=== PATIENT | male | born 1970 | race Caucasian/White ===

== ENCOUNTER 2020-05-06 17:53 | Inpatient (IN) | payer BC, SELFPAY ==
[2020-05-06 17:54] VITALS: BP 141/105; PULSE 107; RESP 18; TEMP 36.4; O2SAT 98; BMI 32.5
--- NOTE | 2020-05-06 18:09 | CT_ITS ---
We are attempting to reach an attending provider to discuss findings. An addendum with communication details will be sent when the communication is complete. HISTORY: ABD PAIN/BLOATING. UNINTENTIONAL WEIGHT LOSS. OCCASIONAL VOMITING. DAILY DRINKER 5-7 BEERS/DAY, 12 ON DAYS OFF. TECHNIQUE: Helically acquired images were obtained of the abdomen and pelvis following the intravenous administration of 100 ML of Isovue-370 Iodinated contrast. 2D reformats. Oral contrast was administered. A radiation dose optimization technique was used for this scan. COMPARISON: None FINDINGS: # of images incl. paperwork: 427 LUNG BASES: Clear. CT abdomen: Bones are unremarkable. The gallbladder remains. Liver, spleen, pancreas, and adrenal glands, are normal. The kidneys are normal. The aorta is normal. CT pelvis: Right paracolic gutter ascites is present. The appendix may have ruptured. No abscess is perceived. The appendix is distended to 16 mm. No free air is perceived.. The prostate gland is not enlarged. The bladder is somewhat decompressed. Bowel-gas pattern is normal. CT/Abdomen/Pelvis WITH Contrast IMPRESSION: Acute appendicitis, likely ruptured with out abscess Individualized dose optimization techniques were used for this CT. at 2011 Reported and signed by: Michael Adkins MD Electronically Signed: Michael Adkins MD at 20:10 EDT Tel , Service support ,
[2020-05-06 18:26] LABS: Absolute Lymphocyte Count 1.51 X10^3/uL (0.83-4.51); Absolute Neutrophil Count 3.6 X10^3/uL (2.0-7.7); Basophil# 0.03 X10^3/uL; Basophil% 0.5 % (0-1); Eosinophil# 0.02 X10^3/uL; Eosinophils% 0.3 % (0-5); Hemoglobin 12.7 g/dL (13.0-16.5); Lymphocyte # 1.51 X10^3/ul (4.0); Lymphocyte % 24.1 % (19-41); Mean Corp Hgb Conc 33.4 g/dL (32-36); Mean Corpuscular Hgb 32.6 pg (27.0-32.0); Mean Corpuscular Volume 97.4 fL (80-94); Mean Platelet Vol. 8.7 fl (6.2-12.0); Monocyte# 0.99 X10^3/uL; Monocyte% 15.8 % (0-10); NRBC Flagged by Analyzer 0 % (0-5); Neutrophil % 57.5 % (47-70); Platelet Count 174 K/mm3 (150-450); RBC Distribution Width CV 11.4 % (11.6-14.6); RBC Distribution Width SD 40.3 fl (35.1-43.9); White Blood Count 6.3 K/mm3 (4.4-11.0)
[2020-05-06] MEDS: 0.9% Normal Saline 1,000 ML 125 ML IV (18:29)
[2020-05-06 18:43] LABS: ALB/GLOB Ratio 0.7 RATIO (0.9-2.4); AST(SGOT) 15 U/L (15-37); Alanine Aminotransfer ALT/SGPT 18 U/L (16-61); Albumin, Serum 3.4 g/dL (3.2-5.0); Alkaline Phosphatase 55 U/L (45-117); Anion Gap 7 (5-15); BUN 12 mg/dL (7-18); BUN/Creat Ratio 11.3 RATIO (10-20); Calcium,Total 9.4 mg/dL (8.5-10.1); Chloride 101 mmol/L (98-107); Creatinine, Serum 1.06 mg/dL (0.70-1.30); EST Glomerular Filtration Rate 79 mL/min (>60); Est Glom Filt Rate - Afr Amer 95 mL/min (>60); Estimated Creatinine Clearance 83.37 ml/min; Globulin 5.1 g/dL (2.2-4.2); Glucose 116 mg/dL (74-106); Lipase 124 U/L (73-393); Potassium 3.9 mmol/L (3.5-5.1); Protein, Total 8.5 g/dL (6.4-8.2); Sodium Level 139 mmol/L (136-145)
--- NOTE | 2020-05-06 19:01 | ED.VISSUMM ---
- ER Visit Summary Date of Service: 05/06/20 Chief Complaint: [Abdominal pain] History of Present Illness: The patient is a 50 M [presents the emergency department with complaint of abdominal pain is been going on for at least 3 weeks. Patient complains of nausea and vomiting just off and on. Patient states that he is lost about 13 pounds in the last 2 months. Patient denies any blood in his stool or black tarry stool. He denies any diarrhea. Patient states that he often feels bloated in the lower abdomen and is uncomfortable laying certain ways at times. Patient also states that his urine appeared orange this morning. Patient does drink alcohol and states that he normally drinks 7-8 beers per night and at times will drink 12 beers per day. Patient has history of BPH. Patient has history of gout.] Physical Examination: [HEENT-PERRLA, EOMI. Cranial nerves II through XII grossly intact. TMs clear. Mucous membranes moist. No adenopathy. Cardiovascular-regular rate and rhythm without murmur or ectopy Lungs-clear to auscultation, chest wall stable without crepitus or subcu emphysema Abdomen-normoactive bowel sounds, soft. Patient has tenderness to palpation over right lower quadrant with some guarding. No rebound, rigidity, or cranial signs noted. exam-circumcised male. No hernias noted. Testicles nontender. Normal lie of testicles with normal cremasteric reflex. Extremities-intact ?4, normal range of motion, normal pulses, atraumatic] Test Results: [CBC with differential obtained showed a white count 6.3, hemoglobin 12.7, hematocrit 38, platelets 174. Chemistries were unremarkable. LFTs were normal. Lipase was 124. CT scan of the abdomen pelvis was read by radiology as acute appendicitis likely ruptured without abscess.] Emergency Department Course and Treatment: [IV line established on arrival. Patient was started on Zosyn 4.5 g IV. Case was discussed with general surgeon on-call Dr. Kiet Mercado who evaluated patient in the emergency department and will admit the patient. It is unclear at this time with pain for 3 weeks if this is an acute appendicitis versus a perforated appendicitis versus mass given patient's weight loss and ongoing pain for over 3 weeks.] Treatment Plan: [Admit] Disposition: [Admit] Impression: [Abdominal pain Acute appendicitis] This note was generated with Dragon dictation software. It may contain incorrect words, spelling, and punctuation that were not noted in review of the chart prior to signing ED Disposition - Plan for ED Patient: Referrals: Care Physician,No Primary [Primary Care Provider] -
[2020-05-06 20:26] VITALS: BP 152/111; PULSE 89; RESP 18; O2SAT 98
[2020-05-06 20:27] LABS: Bacteria 0 SEEN /hpf (None Seen); Mucous, Urine 0 SEEN /hpf (<or=2+); Red Blood Cells-Urine 0 SEEN /hpf (0-5); Squamous Epithelial Cells - UA 0 SEEN /hpf (0-5); White Blood Cells 0 SEEN /hpf (0-5)
[2020-05-06 20:28] LABS: Color, Urine Yellow (Yellow); Glucose, Dipstick Normal (Normal); Ketone-Dipstick Negative (Negative); Leukocyte Esterase-Dipstick Negative /ul (Negative); Nitrite-Dipstick Negative (Negative); Occult Blood-Urine Negative /ul (Negative); Protein-Dipstick 15 mg/dl (Negative); Specific Gravity, Urine 1.015 (1.002-1.030); Urine Bilirubin Dipstick Negative (Negative); Urine Clarity Clear (Clear); Urine Urobilinogen 4 mg/dl (Normal)
--- NOTE | 2020-05-06 21:20 | CON.PCM_ITS ---
Reason for Consult Date of Consultation: 05/06/20 Reason for Consultation: Medical consultation, management History of Present Illness: Admission Diagnoses: 1. Acute appendicitis, ruptured versus possible mass 2. Elevated BP without hypertensive diagnosis 3. EtOH Abuse with History of Withdrawal 4. Chronic Heavy Chew Tobacco Abuse 5. BPH The patient is a 50 y/o M w/ PMHx: Chew Tobacco (heavy), Obesity, BPH, EtOH Abuse (3 tall boys daily followed by 7-12 ounce beers, more on the weekends) who presents to the [facility] ED on 05/06/20 with history of approximately 2 to 3 weeks of ongoing abdominal discomfort with intermittent nausea and emesis, initially starting as a cramping dull sensation in the periumbilical region with eventual transition to the right lower quadrant, worse with movement and with activity more recently with a sensation of bloating with difficulty getting comfortable and leading to poor oral intake with concentrated urine prompting eventual ED presentation. Patient during this time has continued to drink his normal amount of alcohol despite feeling poorly. Patient currently rating pain 4-5 out of 10 in severity, more dull but sharp with palpation of the region. Denies any recent fevers or chills associated. Patient does state that over the last several months he has lost approximately 10 to 15 pounds but states he believes this is secondary to decreased oral intake as he is very active during this season. Work-up in the ED included T 97.5, heart rate initially 107 with repeat 89, BP 141/105, respiratory rate 18, 98% on room air, CBC with WC 6.3, hemoglobin 12.7, platelet 174 without significant left shift but increased immature granulocytes, CMP with glucose 116 otherwise not marked appearing, lipase 124, urinalysis not marked appearing, CT abdomen and pelvis with contrast with evidence of acute appendicitis suspected ruptured without abscess. In the ED patient administered Zosyn therapy. ED physician discussed case and patient was admitted by Dr. Mercado, general surgery. General surgery requested medical consultation for alcohol abuse history. Patient does admit that when he is without alcohol intake for less than 24 hours he has onset significant tremors but denies any history previously of seizure activity. Past Medical History Allergies No Known Allergies Allergy (Verified 05/06/20 17:57) Home Medications: Ambulatory Orders Medication Instructions Recorded NK 05/06/20 Surgical History: no surgical history Psychiatric History: No pertinent psych hx Lives: Spouse/ Significant Other Smoking Status: Never smoker Tobacco Use: Chew - Patient with heavy chew tobacco usage of at least 1 can jazmine y, always in when he is not eating even during sleep. Alcohol: Heavy - Patient notes at least 3 tall boys daily followed by 7, 12 ounce beers and more on the weekends. Drugs: None - *Family History Maternal History Items: High Cholesterol, Heart Disease, Hypertension Paternal History Items: High Cholesterol, Heart Disease, Hypertension Review of Systems Constitutional: Reports: Anorexia, Malaise, Weakness, Weight Change, Fatigue. Denies: Chills, Fever HEENT: Denies: Head Aches, Sinus Congestion, Sinus Drainage Cardiovascular: Denies: Chest Pain, Palpitations Respiratory: Denies: Cough, Shortness of breath at rest, Sputum production Gastrointestinal: Reports: Abdominal Pain, Nausea, Vomiting. Denies: Constipation, Diarrhea Genitourinary: Reports: - - Concentrated urine.. Denies: Dysuria Musculoskeletal: Reports: Back Pain, Joint Pain. Denies: Joint Tenderness Skin: Denies: Rash, Wounds Neurological: Reports: Tremor. Denies: Focal weakness, Numbness, Tingling Psychiatric: Denies: Anxiety, Depression, Homicidal Ideations, Suicidal Ideations Hematologic/ Lymphatic: Denies: Easy Bruising, Easy Bleeding Patient Problems: Active and Suspected Problems Abdominal pain (Acute) Subjective: Patient laying in the ED bed, mildly fatigued appearance, uncomfortable with palpation to the abdomen. Objective: Physical Examination: General: awake, alert, oriented x 3 and cooperative, seated upright in the ED bed, mildly fatigued appearance, notes discomfort primarily palpation. Skin: normal color, turgor, no icterus, cyanosis. HEENT: AT/NC, EOMI, PERRLA, scleral injection bilaterally, dry MM, no carotid bruits or JVD noted. Lungs: CTA bilaterally, moderate effort, mild decrease BL bases, no rales, ronchi or wheezing. Heart: Mildly tachycardic with regular rhythm; no gallop, rub audible. Abdomen: soft, discomfort with palpation of primarily right lower quadrant with rebound noted, notes sensation of distention but no obvious distention, distant normal bowel sounds, difficult to assess HSM given discomfort with palpation. Extremities: no cyanosis, clubbing, or edema. Neurological: patient awake, alert, oriented x 3; cognitive function intact; pupils equally reactive to light and accomodation; cranial nerves II-XII grossly normal, moving all 4 extremities, no focal deficits, strength moderately global decrease secondary to acute complaints. Psychiatric: affect appears fatigued and mildly uncomfortable following evaluation otherwise normal, no acute evidence of depressive or anxiety feelings. - Physical Exam Vitals/I&O's: Vital Signs Temp Pulse Resp BP Pulse Ox 97.5 F L 89 18 152/111 H 98 05/06/20 17:54 05/06/20 20:26 05/06/20 20:26 05/06/20 20:26 05/06/20 20:26 Oxygen Delivery Method Room Air Weight: 220 lb 10.923 oz Body Mass Index (BMI) 32.5 Laboratory Results 05/06/20 18:18: WBC 6.3, RBC 3.90 L, Hgb 12.7 L, Hct 38.0 L, MCV 97.4 H, MCH 32.6 H, MCHC 33.4, RDW Std Deviation 40.3, RDW Coeff of Alejandro 11.4 L, Plt Count 174, MPV 8.7, Immature Gran % (Auto) 1.800 H, Neut % (Auto) 57.5, Lymph % (Auto) 24.1, [place] % (Auto) 15.8 H, Eos % (Auto) 0.3, Baso % (Auto) 0.5, Absolute Neuts (auto) 3.6, Absolute Lymphs (auto) 1.51, Nucleated RBC % 0 05/06/20 18:18: Sodium 139, Potassium 3.9, Chloride 101, Carbon Dioxide 31.0, Anion Gap 7, BUN 12, Creatinine 1.06, Estim Creat Clear Calc 83.37, Est GFR (MDRD) Af Amer 95, Est GFR (MDRD) Non-Af 79, BUN/Creatinine Ratio 11.3, Glucose 116 H, Calcium 9.4, Total Bilirubin 0.30, AST 15, ALT 18, Alkaline Phosphatase 55, Total Protein 8.5 H, Albumin 3.4, Globulin 5.1 H, Albumin/Globulin Ratio 0.7 L, Lipase 124 05/06/20 20:20: Urine Color Yellow, Urine Clarity Clear, Urine pH 8.0, Ur Specific [place] 1.015, Urine Protein 15 H, Urine Glucose (UA) Normal, Urine Ketones Negative, Urine Occult Blood Negative, Urine Nitrite Negative, Urine Bilirubin Negative, Urine Urobilinogen 4 H, Ur Leukocyte Esterase Negative, Urine RBC 0 SEEN, Urine WBC 0 SEEN, Ur Squamous Epith Cells 0 SEEN, Urine Bacteria 0 SEEN, Urine Mucus 0 SEEN Current Medications Sodium Chloride () 1,000 mls @ 125 mls/hr IV .Q8H GUILLE Last Admin: 05/06/20 18:29 Dose: 125 mls/hr Documented by: Assessment/Plan All Active Problems Abdominal pain (Acute) The patient is a 50 y/o M w/ PMHx: Chew Tobacco (heavy), Obesity, BPH, EtOH Abuse who presents to the [facility] ED on 05/06/20 with history of approximately 2 to 3 weeks of ongoing abdominal discomfort with intermittent nausea and emesis, initially starting as a cramping dull sensation in the periumbilical region with eventual transition to the right lower quadrant, worse with movement and with activity more recently with a sensation of bloating. 1. Acute appendicitis: Admitted per general surgery, antibiotic therapy discretion per general surgery with administration of Zosyn in the ED, expect n.p.o. status, IV fluids, PRN pain regimen per general surgery discretion, antiemetics per general surgery discretion, GI prophylaxis and chemoprophylaxis per surgery discretion given possible operative intervention. 2. Elevated BP without hypertensive diagnosis: Possibly related with pain, will continue closely monitor and add oral regimen if appropriate, PRN IV hydralazine in interim. 3. EtOH Abuse with History of Withdrawal: Patient is not interested in sobriety however he is noting history of significant tremors with withdrawal therefore be cautious given planned admission and possible intervention needs per general surgery will initiate and continue on protocol with taper course of Phenobarbital, scheduled gabapentin for seizure prophylaxis, as needed Catapres, Bentyl, Vistaril, IV fluids, IV antiemetics, Tylenol as needed for pain. Will consult Case management for substance abuse for information but not currently interested with treatment. Mag, phos pending. Maintain on CIWA protocol concurrently. 4. Chronic Heavy Chew Tobacco Abuse: Encouraged cessation, inpatient consultation per RT, NR if desired. 5. BPH: Previously was on Flomax, monitor especially given planned narcotic usage as may necessitate initiation of regimen if urinary retention. 6. DVT prophylaxis: Per discretion of general surgery given possible intervention. Office Visits / Consults: [id number] IP Consult L4
--- NOTE | 2020-05-06 21:20 | HP.PCM_ITS ---
Problem List (1) Abdominal pain Status: Acute Qualifiers: Abdominal location: lower abdomen, unspecified Qualified Code(s): R10.30 - Lower abdominal pain, unspecified (2) Umbilical hernia Status: Acute Qualifiers: Obstruction and gangrene presence: without obstruction or gangrene Qualified Code(s): K42.9 - Umbilical hernia without obstruction or gangrene (3) Alcohol dependency Status: Acute Qualifiers: Complication of substance-induced condition: uncomplicated (4) Tobacco dependence due to chewing tobacco Status: Acute History of Present Illness Date of Admission: 05/06/20 The patient is a 50 year old M who presents to the [facility] emergency room after being seen in a [facility] clinic and recommended to come urgently to the ER. Over the past 2 months the patient has had a 12 pound weight loss. He attributes this to increased physical activity. For at least the past 3 weeks he is had a generalized low abdominal pain. 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 It is of note that he chooses significant amount of tobacco at least a can of chew per day and at least 7-8 beers nightly up to 12 beers per day. He denies fever or chills or sweats or nausea. His says may be 2 occasions of emesis but nothing today. His last bowel movement was earlier today. Claims it was brown. Does not notice any bright red blood per rectum or melena. For the last 3 weeks he is felt generally bloated in the low abdomen. He is also had some right testicular tenderness though he cannot feel a mass. He has never had a colonoscopy He denies family history of colon polyps or colon cancer or inflammatory bowel disease His white blood cell count is completely normal at 6.3 hemoglobin is 12.7 with hematocrit of 38 and a platelet count of 174,000. Shift is completely normal with neutrophils being 57% and lymphocytes 24%. Monocytes are 15.8%. BUN is 12 and creatinine 1.06. Liver function tests are normal. Lipase normal. Urinalysis is normal. Through the emergency room a oral and IV contrasted CT was obtained. The right pericolic gutter has ascites present. The appendix may have ruptured no abscess perceived. Appendix is distended to 16 mm. No free air. What is not mentioned on the radiologist interpretation however is the amount of streaking within the right pericolonic fat and mesentery. There seems to be thickening of the cecal wall. There certainly is inflammation and enlargement of the appendix The patient does not have a primary care physician. He denies any chronic medications. States not allergic to any medications. Past Medical History Allergies No Known Allergies Allergy (Verified 05/06/20 17:57) Home Medications: Ambulatory Orders Medication Instructions Recorded NK 05/06/20 Surgical History: no surgical history Lives: Spouse/ Significant Other Smoking Status: Never smoker Tobacco Use: Chew Alcohol: Heavy - *Family History Offspring History Items: Unknown Review of Systems Constitutional: Reports: Weight Change. Denies: Chills, Fever, Night Sweats, Fatigue HEENT: Denies: Difficulty Swallowing Cardiovascular: Denies: Chest Pain Respiratory: Denies: Cough, Shortness of Breath Gastrointestinal: Reports: Abdominal Pain, Constipation, Vomiting. Denies: Diarrhea, Hematemesis, Hematochezia, Nausea, Melena Genitourinary: Reports: - - Diminished urinary volume, - - Patient notes right testicular tenderness Musculoskeletal: Denies: Leg Pain Skin: Denies: Wounds Neurological: Denies: Seizures Endocrine: Reports: Change in Body Habitus Hematologic/ Lymphatic: Denies: Adenopathy VTE Information - Inpt Only VTE Present on Admission: No Patient Problems: Active and Suspected Problems Abdominal pain (Acute) Umbilical hernia (Acute) Alcohol dependency (Acute) Tobacco dependence due to chewing tobacco (Acute) - Physical Exam Vitals/I&O's: Vital Signs Temp Pulse Resp BP Pulse Ox 97.5 F L 89 18 152/111 H 98 05/06/20 17:54 05/06/20 20:26 05/06/20 20:26 05/06/20 20:26 05/06/20 20:26 Oxygen Delivery Method Room Air Weight: 220 lb 10.923 oz Body Mass Index (BMI) 32.5 General: Alert, Oriented x3, Cooperative, No apparent distress HEENT: Atraumatic Oral: Moist Mucosa Neck: Supple, Negative Carotid Bruits, Trachea Midline Lungs: Clear to auscultation, Normal air movement Cardiovascular: Regular rate, Regular Rhythm Abdomen: Soft, Hypoactive Bowel Sounds, Distended, Obese - Small umbilical hernia nontender, - - Tender to palpation right lower quadrant with fullness noted. No true rebound. Abdomen is not tense Extremities: No Calf Tenderness Skin: No rashes Lymphatic: No Cervical, Supraclavicular, or Inguinal Adenopathy Neurological: - - Normal cognition Psych/Mental Status: Normal Affect Laboratory Results 05/06/20 18:18: WBC 6.3, RBC 3.90 L, Hgb 12.7 L, Hct 38.0 L, MCV 97.4 H, MCH 32.6 H, MCHC 33.4, RDW Std Deviation 40.3, RDW Coeff of Alejandro 11.4 L, Plt Count 174, MPV 8.7, Immature Gran % (Auto) 1.800 H, Neut % (Auto) 57.5, Lymph % (Auto) 24.1, [place] % (Auto) 15.8 H, Eos % (Auto) 0.3, Baso % (Auto) 0.5, Absolute Neuts (auto) 3.6, Absolute Lymphs (auto) 1.51, Nucleated RBC % 0 05/06/20 18:18: Sodium 139, Potassium 3.9, Chloride 101, Carbon Dioxide 31.0, Anion Gap 7, BUN 12, Creatinine 1.06, Estim Creat Clear Calc 83.37, Est GFR (MDRD) Af Amer 95, Est GFR (MDRD) Non-Af 79, BUN/Creatinine Ratio 11.3, Glucose 116 H, Calcium 9.4, Total Bilirubin 0.30, AST 15, ALT 18, Alkaline Phosphatase 55, Total Protein 8.5 H, Albumin 3.4, Globulin 5.1 H, Albumin/Globulin Ratio 0.7 L, Lipase 124 05/06/20 20:20: Urine Color Yellow, Urine Clarity Clear, Urine pH 8.0, Ur Specific [place] 1.015, Urine Protein 15 H, Urine Glucose (UA) Normal, Urine Ketones Negative, Urine Occult Blood Negative, Urine Nitrite Negative, Urine Bilirubin Negative, Urine Urobilinogen 4 H, Ur Leukocyte Esterase Negative, Urine RBC 0 SEEN, Urine WBC 0 SEEN, Ur Squamous Epith Cells 0 SEEN, Urine Bacteria 0 SEEN, Urine Mucus 0 SEEN Current Medications Sodium Chloride () 1,000 mls @ 125 mls/hr IV .Q8H GUILLE Last Admin: 05/06/20 18:29 Dose: 125 mls/hr Documented by: Assessment/Plan All Active Problems Abdominal pain (Acute) Umbilical hernia (Acute) Alcohol dependency (Acute) Tobacco dependence due to chewing tobacco (Acute) 50-year-old gentleman presents with a 3-week history of constant illness low mid abdominal pain. 12 pound weight loss over 2 months but possibly activity related. No history of colonoscopy. No fever or chills or sweats. Slightly tender right testicle. Abnormal CT with suggestion of possible ruptured appendicitis although clinical presentation is not fitting that. On my review of his CT he has thickening of the wall of the cecum. There is significant pericolonic streaking and mesenteric streaking. This is clearly not an acute new process. It is unclear to me whether this is acute bacterial appendicitis or whether this could be a mucocele or whether this could be a malignancy involving the wall of the cecum with secondary involvement of the appendix. It is clearly been now at least a 3-week chronic process. I do not believe that surgery will result in a simple appendectomy. I am very concerned that he will require a right colectomy for definitive treatment. He is not urgent and this will not be performed shortstaffed in the middle of the night. I will obtain medical consultation to help with alcohol withdrawal and chronic tobacco use issues. I will obtain ESR and CRP. I will review his CT imaging with local radiology tomorrow morning. I have instructed the patient and his of the potential need for laparoscopy with conversion to laparotomy with possible right colectomy possible diverting ileostomy or colostomy. We have discussed some of the technique, benefit, risks, alternatives. No guarantees of success have been offered. I will obtain blood cultures. We will place him temporarily on antibiotics. The etiology to this right lower quadrant process as yet undetermined. I appreciate medical assistance. I will utilize sequential venous compression devices for DVT prophylaxis as well as encourage mobilization. Patient is a small umbilical hernia. This may require repair at the time of his procedure. Kiet Mercado M.D., F.A.C.S.
[2020-05-06] MEDS: 0.9% Normal Saline 1,000 ML 100 ML IV (21:41)
[2020-05-06 21:42] VITALS: BP 150/99; PULSE 92; RESP 20; TEMP 36.3; TEMP 36.4; O2SAT 98
[2020-05-06 21:48] LABS: Magnesium 2.4 mg/dL (1.6-2.6); Phosphorus 3.9 mg/dL (2.5-4.9)
--- NOTE | 2020-05-06 22:03 | ED.RN ---
unable to scan nicoderm patch, as it's unverified. Placed on Left shoulder.
--- NOTE | 2020-05-06 22:57 | EKG12_ITS ---
Test Reason : PRE OP Blood Pressure : / mmHG Vent. Rate : 080 BPM Atrial Rate : 080 BPM P-R Int : 162 ms QRS Dur : 082 ms QT Int : 424 ms P-R-T Axes : 072 043 039 degrees QTc Int : 489 ms Normal sinus rhythm Prolonged QT Abnormal ECG Confirmed by JANIE UMANZOR, DANITA ([id number]), desk editor MARIYA ALMARAZ ([id number]) on 05/14/2020 1:11:35 PM Referred By: NORIS Confirmed By:DANITA LIMA MD
[2020-05-06 23:10] VITALS: BMI 33.0; BMI 33.1
[2020-05-06 23:16] VITALS: BP 156/101; PULSE 82; RESP 16; TEMP 37.3; O2SAT 100
[2020-05-07] VITALS (14 sets, daily range): BP systolic 94–135; BP diastolic 71–87; PULSE 62–91; RESP 16–18; TEMP 36.5–37.3; O2SAT 94–99; BMI 32.5
[2020-05-07] MEDS: Phenobarbital 32.4 MG Tablet 64.8 MG PO ×6 (00:07→22:49)
[2020-05-07] MEDS: Famotidine 20 MG Tablet PO ×2 (00:07→22:49)
[2020-05-07 00:09] LABS: Amphetamine Urine VISTA NEGATIVE (<1000 ng/mL); Barbiturate Urine VISTA NEGATIVE (< 200 ng/mL); Benzodiazepine Urine VISTA NEGATIVE (< 200 ng/mL); Cocaine Urine VISTA NEGATIVE (< 300 ng/mL); Ecstacy Urine VISTA NEGATIVE (< 500 ng/mL); Methadone Urine VISTA NEGATIVE (< 300 ng/mL); PCP Urine VISTA NEGATIVE (< 25 ng/mL); THC Urine VISTA NEGATIVE (< 50 ng/mL); Vista UDS pH Range 8
[2020-05-07 00:34] LABS: Alcohol, Blood (Medical)-Serum < 3.0 mg/dL
[2020-05-07 05:07] LABS: Absolute Lymphocyte Count 1.36 X10^3/uL (0.83-4.51); Basophil# 0.02 X10^3/uL; Basophil% 0.4 % (0-1); Eosinophil# 0.04 X10^3/uL; Eosinophils% 0.7 % (0-5); Hemoglobin 11.7 g/dL (13.0-16.5); Lymphocyte # 1.36 X10^3/ul (4.0); Lymphocyte % 24.3 % (19-41); Mean Corp Hgb Conc 33.4 g/dL (32-36); Mean Corpuscular Volume 98.6 fL (80-94); Mean Platelet Vol. 8.9 fl (6.2-12.0); Monocyte# 1.11 X10^3/uL; Monocyte% 19.9 % (0-10); NRBC Flagged by Analyzer 0 % (0-5); Neutrophil # 2.98 X10^3/uL (2.7-7.7); Neutrophil % 53.3 % (47-70); Platelet Count 145 K/mm3 (150-450); RBC Distribution Width CV 11.3 % (11.6-14.6); RBC Distribution Width SD 41.1 fl (35.1-43.9); Red Blood Count 3.55 M/mm3 (4.6-6.2); White Blood Count 5.6 K/mm3 (4.4-11.0)
[2020-05-07 05:28] LABS: International Normalized Ratio 1.2; Prothrombin Time (Protime)PT. 14.6 SECONDS (11.7-14.9)
[2020-05-07 05:29] LABS: Partial Thromboplast Time 37.3 Seconds (24.1-36.2)
[2020-05-07 05:31] LABS: Erythrocyte Sedimentation Rate 42 mm/hr (0-20)
[2020-05-07 05:36] LABS: ALB/GLOB Ratio 0.7 RATIO (0.9-2.4); AST(SGOT) 14 U/L (15-37); Alanine Aminotransfer ALT/SGPT 16 U/L (16-61); Albumin, Serum 2.9 g/dL (3.2-5.0); Alkaline Phosphatase 45 U/L (45-117); Anion Gap 5 (5-15); BUN 12 mg/dL (7-18); BUN/Creat Ratio 13.2 RATIO (10-20); Bilirubin, Direct 0.24 mg/dL (0.00-0.30); Calcium,Total 8.1 mg/dL (8.5-10.1); Chloride 104 mmol/L (98-107); Creatinine, Serum 0.91 mg/dL (0.70-1.30); EST Glomerular Filtration Rate 94 mL/min (>60); Est Glom Filt Rate - Afr Amer 114 mL/min (>60); Estimated Creatinine Clearance 97.12 ml/min; Globulin 4.2 g/dL (2.2-4.2); Glucose 98 mg/dL (74-106); Potassium 3.5 mmol/L (3.5-5.1); Protein, Total 7.1 g/dL (6.4-8.2); Sodium Level 138 mmol/L (136-145)
[2020-05-07] MEDS: 0.9% Normal Saline 1,000 ML 100 ML IV ×2 (05:52→14:02)
--- NOTE | 2020-05-07 06:14 | PCM.PN.SRG ---
Patient Problems: Active and Suspected Problems Abdominal pain (Acute) Umbilical hernia (Acute) Alcohol dependency (Acute) Tobacco dependence due to chewing tobacco (Acute) Subjective: Patient is noting abdominal distention. He is feeling gas pain. He has been able to pass some flatus. - Physical Exam Vitals/I&O's: Vital Signs Temp Pulse Resp BP Pulse Ox 98.8 F 78 16 134/79 H 98 05/07/20 03:24 05/07/20 03:24 05/07/20 03:24 05/07/20 03:24 05/07/20 03:24 Oxygen Delivery Method Room Air Weight: 224 lb 3.362 oz Body Mass Index (BMI) 33.0 Intake and Output for Last 24 Hours 05/05/20 05/06/20 05/07/20 23:59 23:59 23:59 Intake Total 539.58 / 539.58 868.83 / 868.83 Balance 539.58 / 539.58 868.83 / 868.83 Laboratory Results 05/06/20 18:18: WBC 6.3, RBC 3.90 L, Hgb 12.7 L, Hct 38.0 L, MCV 97.4 H, MCH 32.6 H, MCHC 33.4, RDW Std Deviation 40.3, RDW Coeff of Alejandro 11.4 L, Plt Count 174, MPV 8.7, Immature Gran % (Auto) 1.800 H, Neut % (Auto) 57.5, Lymph % (Auto) 24.1, Desha % (Auto) 15.8 H, Eos % (Auto) 0.3, Baso % (Auto) 0.5, Absolute Neuts (auto) 3.6, Absolute Lymphs (auto) 1.51, Nucleated RBC % 0 05/06/20 18:18: Sodium 139, Potassium 3.9, Chloride 101, Carbon Dioxide 31.0, Anion Gap 7, BUN 12, Creatinine 1.06, Estim Creat Clear Calc 83.37, Est GFR (MDRD) Af Amer 95, Est GFR (MDRD) Non-Af 79, BUN/Creatinine Ratio 11.3, Glucose 116 H, Calcium 9.4, Total Bilirubin 0.30, AST 15, ALT 18, Alkaline Phosphatase 55, Total Protein 8.5 H, Albumin 3.4, Globulin 5.1 H, Albumin/Globulin Ratio 0.7 L, Lipase 124 05/06/20 18:18: Phosphorus 3.9, Magnesium 2.4 05/06/20 20:20: Urine Color Yellow, Urine Clarity Clear, Urine pH 8.0, Ur Specific [place] 1.015, Urine Protein 15 H, Urine Glucose (UA) Normal, Urine Ketones Negative, Urine Occult Blood Negative, Urine Nitrite Negative, Urine Bilirubin Negative, Urine Urobilinogen 4 H, Ur Leukocyte Esterase Negative, Urine RBC 0 SEEN, Urine WBC 0 SEEN, Ur Squamous Epith Cells 0 SEEN, Urine Bacteria 0 SEEN, Urine Mucus 0 SEEN 05/06/20 23:40: Urine Opiates Screen NEGATIVE, Urine Methadone Screen NEGATIVE, Ur Barbiturates Screen NEGATIVE, Ur Phencyclidine Scrn NEGATIVE, Ur Amphetamines Screen NEGATIVE, U Methamphetamin-MDMA NEGATIVE, U Benzodiazepines Scrn NEGATIVE, Urine Cocaine Screen NEGATIVE, U Cannabinoids Screen NEGATIVE, Ur Drug Screen Comment 05/06/20 23:55: Ethyl Alcohol < 3.0 05/07/20 04:55: WBC 5.6, RBC 3.55 L, Hgb 11.7 L, Hct 35.0 L, MCV 98.6 H, MCH 33.0 H, MCHC 33.4, RDW Std Deviation 41.1, RDW Coeff of Alejandro 11.3 L, Plt Count 145 L, MPV 8.9, Immature Gran % (Auto) 1.400 H, Neut % (Auto) 53.3, Lymph % (Auto) 24.3, Desha % (Auto) 19.9 H, Eos % (Auto) 0.7, Baso % (Auto) 0.4, Absolute Neuts (auto) 3.0, Absolute Lymphs (auto) 1.36, Nucleated RBC % 0, ESR 42 H 05/07/20 04:55: Sodium 138, Potassium 3.5, Chloride 104, Carbon Dioxide 29.0, Anion Gap 5, BUN 12, Creatinine 0.91, Estim Creat Clear Calc 97.12, Est GFR (MDRD) Af Amer 114, Est GFR (MDRD) Non-Af 94, BUN/Creatinine Ratio 13.2, Glucose 98, Calcium 8.1 L, Total Bilirubin 0.60, Direct Bilirubin 0.24, AST 14 L, ALT 16, Alkaline Phosphatase 45, C-React Prot Ext Range 137.00 H, Total Protein 7.1, Albumin 2.9 L, Globulin 4.2, Albumin/Globulin Ratio 0.7 L 05/07/20 04:55: PT 14.6, INR 1.2, APTT 37.3 H Current Medications Acetaminophen (Tylenol) 650 mg PO Q6H PRN PRN PRN Reason: Pain Score 1-3 /Temp>100.7 Al Hydroxide/Mg Hydroxide (Mylanta Ii) 30 ml PO Q6H PRN PRN PRN Reason: Gastric Burning Albuterol Sulfate (Ventolin Aerosols) 2.5 mg INHALATION Q2H PRN PRN PRN Reason: Dyspnea, wheezing Dicyclomine HCl (Bentyl) 20 mg PO Q6H PRN PRN PRN Reason: abdominal discomfort Famotidine (Pepcid) 20 mg PO BID [facility] Last Admin: 05/07/20 00:07 Dose: 20 mg Documented by: Folic Acid (Folic Acid) 1 mg PO DAILY@0800 [facility] Stop: 05/09/20 08:01 Gabapentin (Neurontin) 300 mg PO Q8H PRN PRN PRN Reason: moderate to severe anxiety Hydralazine HCl (Apresoline Iv) 10 mg IV Q4H PRN PRN PRN Reason: SBP > 160 Hydroxyzine Pamoate (Vistaril Pamoate Capsule) 50 mg PO Q4H PRN PRN PRN Reason: mild anxiety Sodium Chloride () 1,000 mls @ 100 mls/hr IV .Q10H [facility] Last Admin: 05/07/20 05:52 Dose: 100 mls/hr Documented by: Piperacillin Sod/Tazobactam (Sod 3.375 gm/ Sodium Chloride) 50 mls @ 12.5 mls/hr IV Q8 [facility] Last Admin: 05/07/20 05:52 Dose: 12.5 mls/hr Documented by: Sodium Chloride () 250 mls @ 15 mls/hr IV .[id number] PRN PRN Reason: Saline Flush Last Infusion: 05/07/20 00:13 Dose: 0 mls/hr Documented by: Sodium Chloride () 250 mls @ 15 mls/hr IV .[id number] PRN PRN Reason: Additional IVPB Infusion Loperamide HCl (Imodium) 2 mg PO Q4H PRN PRN PRN Reason: LOOSE STOOLS Lorazepam (Ativan) 2 mg PO Q2H PRN PRN; Protocol PRN Reason: CIWA score > 8 but <15 Lorazepam (Ativan) 2 mg PO UD PRN; Protocol PRN Reason: CIWA score >/=15. Lorazepam (Ativan) 2 mg IV Q2H PRN PRN; Protocol PRN Reason: CIWA score > 8 but <15 Lorazepam (Ativan) 2 mg IV UD PRN; Protocol PRN Reason: CIWA score >/=15. Morphine Sulfate () 2 - 4 mg IV Q3H PRN PRN PRN Reason: Pain Score 6-10/10 Morphine Sulfate () 1 - 2 mg IV Q4H PRN PRN PRN Reason: Pain Score 4-5/10 Multivitamins/Minerals (Multivitamin With Minerals (Bkc)) 1 tablet PO DAILYCM [facility] Nicotine (Nicoderm Cq (Pbkc)) 21 mg TRANSDERM. DAILY [facility] Ondansetron HCl (Zofran) 4 mg IV Q8H PRN PRN PRN Reason: Nausea Oxycodone HCl (Oxyir) 5 mg PO Q4H PRN PRN PRN Reason: Pain Score 4-5/10 Phenobarbital (Phenobarbital) 97.2 mg PO Q4H [facility]; Taper Stop: 05/11/20 07:44 Last Admin: 05/07/20 03:27 Dose: 97.2 mg Documented by: Prochlorperazine Edisylate (Compazine Iv) 10 mg IV Q6H PRN PRN PRN Reason: Nausea/Vomiting Sodium Chloride () 10 - 40 ml IV UD PRN PRN Reason: SALINE FLUSH Thiamine HCl (Vitamin B1) 100 mg PO BIDCM [facility] Stop: 05/09/20 17:01 Trazodone HCl (Desyrel) 100 mg PO QHS PRN PRN PRN Reason: INSOMNIA Medical Necessity - Tobacco Use Smoking Status: Never smoker Tobacco Use: Chew Assessment/Plan All Active Problems Abdominal pain (Acute) Umbilical hernia (Acute) Alcohol dependency (Acute) Tobacco dependence due to chewing tobacco (Acute) Mild anemia noted but may be in part secondary to hemodilution. ESR and CRP notably elevated. No fever recorded. No leukocytosis and no shift. I had an extended discussion with the patient this morning. This could be an unusual presentation of a chronic inflammatory appendicitis. There is significant cecal wall thickening. The process has been ongoing for at least 3 weeks. There is no findings suggest abscess but there is significant amount of streaking of the pericolonic tissues and mesentery. This could represent a cecal malignancy. This could represent an appendiceal malignancy. I recommended the patient a laparoscopy. Anticipate utilizing the laparoscope to inspect the area but then also provide with some colonic dissection particularly at the hepatic flexure. I have proposed for the patient a right colectomy. I have discussed technique, benefit, risks, alternatives. The patient is aware that I am anticipating an open incision of some type. He is aware that there are absolutely no guarantees of success. He has had an opportunity to ask and have questions answered. We will add him on today's schedule as soon as or scheduling permits. Kiet Mercado M.D., F.A.C.S.
--- NOTE | 2020-05-07 10:46 | DCINST_ITS ---
Discharge Diet: Light diet - advance as tolerated - if you have questions about your diet instructions, please talk to you doctor. Discharge Activity: May Not Drive - for 1 week or while taking narcotic pain medicine. May shower in (days): 1 - May shower when the drain site is dry Lifting Restrictions: 10 pounds Call your doctor if your incision/area has: Continuous Slow Oozing, Sudden Increased Bleeding, Increased Pain/ Swelling, Increased Redness, Foul Smelling Discharge Call your doctor if you observe: Fever of 101 or Higher Suture Line Care: Avoid Pulling/Pushing, Avoid Pinching/Bending Additional Dressing/Incision Instructions:: Change or remove dressing in 2 days. Leave steri-strips in place for 1 week. You may change the drain site dressing daily or as often as needed to keep clean and dry. You may utilize a Q-tip and peroxide to cleanse the site. Apply gauze and tape dressing as needed. Allergies/Adverse Reactions: Allergies No Known Allergies Allergy (Verified 05/06/20 17:57) Medications to take at Discharge Amoxicillin/Potassium Clav [Augmentin 875-125 Tablet] 1 ea PO BID #10 tab 05/08/20 Hydrocodone Bitart/Apap 5-325 [Gratis 5MG-325MG] 1 tablet PO Q6H PRN PRN 2 Days #5 tablet 05/08/20 The following prescriptions were given: Amoxicillin/Potassium Clav [Augmentin 875-125 Tablet] 1 ea PO BID #10 tab Transmission Status: Pending to [facility] Hydrocodone Bitart/Apap 5-325 [Gratis 5MG-325MG] 1 tablet PO Q6H PRN PRN 2 Days #5 tablet PRN Reason: Pain Transmission Status: Sent to [facility] Primary Care Physician: Care Physician,No Primary [Primary Care Provider] - Test Results: Test results from this visit will be discussed in further detail at your follow- up appointment, if applicable. Please Follow Up With: Kiet Mercado MD - [phone] When: Call to make an appointment to be seen in about 10 days.
--- NOTE | 2020-05-07 10:48 | PCM.DC.SUM ---
Discharge Date and Diagnosis Date of Admission: 05/06/20 Date of Discharge: 05/09/20 - Primary Discharge Diagnosis Acute Problems: Active Problems Abdominal pain (Acute) Umbilical hernia (Acute) Alcohol dependency (Acute) Tobacco dependence due to chewing tobacco (Acute) Ruptured appendicits with porsha-appendicitis and cecal inflamation Hospital Course and Treatment Operations: - - May 07, 2020. Hand assisted laparoscopic appendectomy with debridement appendiceal abscess. Umbilical herniorrhaphy. Bilateral tap block. Procedures: None, Cardiac catheterization Summary of Care Provided: The patient is a 50 year old M was at admitted via the emergency room late on the evening of May 06, 2020. He had presented with a 3-week history of abdominal pain. Initial radiology interpreted CT imaging was ruptured appendicitis without abscess however his clinical presentation with the absence of fever chills night sweats leukocytosis or left shift did not fit that diagnosis. It was felt more likely that he had a inflammatory bowel disease or possible mucocele or possible malignancy. It was felt pertinent to obtain definitive treatment and diagnosis with expiration and if need be resection. He was taken to the operating room May 07, 2020. Laparoscopy was performed. He was detected as having a chronically ruptured appendix with appendiceal abscess. There is significant inflammatory changes in the right lower quadrant appendiceal and cecal area. I converted to a hand-assisted approach in order to free the chronic rupture and debride the abscess. Cultures were obtained. A [place] stapler used to do a partial mini cystectomy in order to get clean clearance on the appendix. A drain was left in place. Laparoscopic bilateral tap block performed. An umbilical herniorrhaphy performed with a wound closure with Prolene. At the time of laparoscopy a small indirect right inguinal hernia was noted. The patient progressed well postoperatively. He will be discharged on 5-day course of oral antibiotic. He is been encouraged from a surgical standpoint to cease his alcohol use.YANIRA drain was removed prior to DC. Path consistent with ruptured appendicitis, porsha-appendicitis, cecal inflammation, and umbilical hernia sac. - Physical Exam Vitals/I&O's: Vital Signs Temp Pulse Resp BP Pulse Ox 98.7 F 81 18 133/86 H 96 05/07/20 08:16 05/07/20 08:16 05/07/20 08:16 05/07/20 08:16 05/07/20 08:16 Oxygen Delivery Method Room Air Weight: 220 lb 10.923 oz Body Mass Index (BMI) 32.5 Intake and Output for Last 24 Hours 05/05/20 05/06/20 05/07/20 23:59 23:59 23:59 Intake Total 539.58 / 539.58 918.83 / 918.83 Output Total 200 / 200 Balance 539.58 / 539.58 718.83 / 718.83 General: Alert, Oriented x3, Cooperative, No apparent distress HEENT: Atraumatic Oral: Moist Mucosa Neck: No JVD Lungs: Clear to auscultation Cardiovascular: Regular rate, Regular Rhythm Abdomen: Bowel Sounds Present, Soft, Non Tender Extremities: No Calf Tenderness Skin: No rashes Musculoskeletal: No Tenderness to Palpation of Joints or Extremities Lymphatic: No Cervical, Supraclavicular, or Inguinal Adenopathy Neurological: - - normal cognition Psych/Mental Status: Normal Affect Laboratory Results 05/06/20 18:18: WBC 6.3, RBC 3.90 L, Hgb 12.7 L, Hct 38.0 L, MCV 97.4 H, MCH 32.6 H, MCHC 33.4, RDW Std Deviation 40.3, RDW Coeff of Alejandro 11.4 L, Plt Count 174, MPV 8.7, Immature Gran % (Auto) 1.800 H, Neut % (Auto) 57.5, Lymph % (Auto) 24.1, [place] % (Auto) 15.8 H, Eos % (Auto) 0.3, Baso % (Auto) 0.5, Absolute Neuts (auto) 3.6, Absolute Lymphs (auto) 1.51, Nucleated RBC % 0 05/06/20 18:18: Sodium 139, Potassium 3.9, Chloride 101, Carbon Dioxide 31.0, Anion Gap 7, BUN 12, Creatinine 1.06, Estim Creat Clear Calc 83.37, Est GFR (MDRD) Af Amer 95, Est GFR (MDRD) Non-Af 79, BUN/Creatinine Ratio 11.3, Glucose 116 H, Calcium 9.4, Total Bilirubin 0.30, AST 15, ALT 18, Alkaline Phosphatase 55, Total Protein 8.5 H, Albumin 3.4, Globulin 5.1 H, Albumin/Globulin Ratio 0.7 L, Lipase 124 05/06/20 18:18: Phosphorus 3.9, Magnesium 2.4 05/06/20 20:20: Urine Color Yellow, Urine Clarity Clear, Urine pH 8.0, Ur Specific [place] 1.015, Urine Protein 15 H, Urine Glucose (UA) Normal, Urine Ketones Negative, Urine Occult Blood Negative, Urine Nitrite Negative, Urine Bilirubin Negative, Urine Urobilinogen 4 H, Ur Leukocyte Esterase Negative, Urine RBC 0 SEEN, Urine WBC 0 SEEN, Ur Squamous Epith Cells 0 SEEN, Urine Bacteria 0 SEEN, Urine Mucus 0 SEEN 05/06/20 23:40: Urine Opiates Screen NEGATIVE, Urine Methadone Screen NEGATIVE, Ur Barbiturates Screen NEGATIVE, Ur Phencyclidine Scrn NEGATIVE, Ur Amphetamines Screen NEGATIVE, U Methamphetamin-MDMA NEGATIVE, U Benzodiazepines Scrn NEGATIVE, Urine Cocaine Screen NEGATIVE, U Cannabinoids Screen NEGATIVE, Ur Drug Screen Comment 05/06/20 23:55: Ethyl Alcohol < 3.0 05/07/20 04:55: WBC 5.6, RBC 3.55 L, Hgb 11.7 L, Hct 35.0 L, MCV 98.6 H, MCH 33.0 H, MCHC 33.4, RDW Std Deviation 41.1, RDW Coeff of Alejandro 11.3 L, Plt Count 145 L, MPV 8.9, Immature Gran % (Auto) 1.400 H, Neut % (Auto) 53.3, Lymph % (Auto) 24.3, [place] % (Auto) 19.9 H, Eos % (Auto) 0.7, Baso % (Auto) 0.4, Absolute Neuts (auto) 3.0, Absolute Lymphs (auto) 1.36, Nucleated RBC % 0, ESR 42 H 05/07/20 04:55: Sodium 138, Potassium 3.5, Chloride 104, Carbon Dioxide 29.0, Anion Gap 5, BUN 12, Creatinine 0.91, Estim Creat Clear Calc 97.12, Est GFR (MDRD) Af Amer 114, Est GFR (MDRD) Non-Af 94, BUN/Creatinine Ratio 13.2, Glucose 98, Calcium 8.1 L, Total Bilirubin 0.60, Direct Bilirubin 0.24, AST 14 L, ALT 16, Alkaline Phosphatase 45, C-React Prot Ext Range 137.00 H, Total Protein 7.1, Albumin 2.9 L, Globulin 4.2, Albumin/Globulin Ratio 0.7 L 05/07/20 04:55: PT 14.6, INR 1.2, APTT 37.3 H Current Medications Acetaminophen (Tylenol) 650 mg PO Q6H PRN PRN PRN Reason: Pain Score 1-3 /Temp>100.7 Al Hydroxide/Mg Hydroxide (Mylanta Ii) 30 ml PO Q6H PRN PRN PRN Reason: Gastric Burning Albuterol Sulfate (Ventolin Aerosols) 2.5 mg INHALATION Q2H PRN PRN PRN Reason: Dyspnea, wheezing Dicyclomine HCl (Bentyl) 20 mg PO Q6H PRN PRN PRN Reason: abdominal discomfort Famotidine (Pepcid) 20 mg PO BID [facility] Last Admin: 05/07/20 08:09 Dose: Not Given Documented by: Folic Acid (Folic Acid) 1 mg PO DAILY@0800 [facility] Stop: 05/09/20 08:01 Last Admin: 05/07/20 07:51 Dose: Not Given Documented by: Gabapentin (Neurontin) 300 mg PO Q8H PRN PRN PRN Reason: moderate to severe anxiety Hydralazine HCl (Apresoline Iv) 10 mg IV Q4H PRN PRN PRN Reason: SBP > 160 Hydroxyzine Pamoate (Vistaril Pamoate Capsule) 50 mg PO Q4H PRN PRN PRN Reason: mild anxiety Sodium Chloride () 1,000 mls @ 100 mls/hr IV .Q10H [facility] Last Admin: 05/07/20 05:52 Dose: 100 mls/hr Documented by: Piperacillin Sod/Tazobactam (Sod 3.375 gm/ Sodium Chloride) 50 mls @ 12.5 mls/hr IV Q8 [facility] Last Infusion: 05/07/20 10:29 Dose: Infused Documented by: Sodium Chloride () 250 mls @ 15 mls/hr IV .[id number] PRN PRN Reason: Saline Flush Last Infusion: 05/07/20 00:13 Dose: 0 mls/hr Documented by: Sodium Chloride () 250 mls @ 15 mls/hr IV .[id number] PRN PRN Reason: Additional IVPB Infusion Loperamide HCl (Imodium) 2 mg PO Q4H PRN PRN PRN Reason: LOOSE STOOLS Lorazepam (Ativan) 2 mg PO Q2H PRN PRN; Protocol PRN Reason: CIWA score > 8 but <15 Lorazepam (Ativan) 2 mg PO UD PRN; Protocol PRN Reason: CIWA score >/=15. Lorazepam (Ativan) 2 mg IV Q2H PRN PRN; Protocol PRN Reason: CIWA score > 8 but <15 Lorazepam (Ativan) 2 mg IV UD PRN; Protocol PRN Reason: CIWA score >/=15. Morphine Sulfate () 2 - 4 mg IV Q3H PRN PRN PRN Reason: Pain Score 6-10/10 Morphine Sulfate () 1 - 2 mg IV Q4H PRN PRN PRN Reason: Pain Score 4-5/10 Multivitamins/Minerals ([facility]ivitamin With Minerals ([facility])) [facility] Last Admin: 05/07/20 08:08 Dose: Not Given Documented by: Nicotine (Nicoderm Cq (Pbkc)) 21 mg TRANSDERM. DAILY [facility] Ondansetron HCl (Zofran) 4 mg IV Q8H PRN PRN PRN Reason: Nausea Oxycodone HCl (Oxyir) 5 mg PO Q4H PRN PRN PRN Reason: Pain Score 4-5/10 Phenobarbital (Phenobarbital) 97.2 mg PO Q4H [facility]; Taper Stop: 05/11/20 07:44 Last Admin: 05/07/20 07:01 Dose: 97.2 mg Documented by: Prochlorperazine Edisylate (Compazine Iv) 10 mg IV Q6H PRN PRN PRN Reason: Nausea/Vomiting Sodium Chloride () 10 - 40 ml IV UD PRN PRN Reason: SALINE FLUSH Thiamine HCl (Vitamin B1) [facility] Stop: 05/09/20 17:01 Last Admin: 05/07/20 08:09 Dose: Not Given Documented by: Trazodone HCl (Desyrel) 100 mg PO QHS PRN PRN PRN Reason: INSOMNIA Discharge Diet: Light diet - advance as tolerated - if you have questions about your diet instructions, please talk to you doctor. Discharge Activity: May Not Drive - for 1 week or while taking narcotic pain medicine. May shower in (days): 1 Call your doctor if your incision/area has: Continuous Slow Oozing, Sudden Increased Bleeding, Increased Pain/ Swelling, Increased Redness, Foul Smelling Discharge Call your doctor if you observe: Fever of 101 or Higher Suture Line Care: Avoid Pulling/Pushing, Avoid Pinching/Bending Additional Dressing/Incision Instructions:: Change or remove dressing in 2 days. Leave steri-strips in place for 1 week. Home Medications: Medications to take at Discharge Amoxicillin/Potassium Clav [Augmentin 875-125 Tablet] 1 ea PO BID #10 tab 05/08/20 Following Prescriptions Were Given to Patient: Amoxicillin/Potassium Clav [Augmentin 875-125 Tablet] 1 ea PO BID #10 tab Transmission Status: Received by [facility] Primary Care Physician: Care Physician,No Primary [Primary Care Provider] - Please Follow Up With: Kiet Mercado MD - [phone] When: Call to make an appointment to be seen in about 10 days. Disposition: Home Patient Condition:: Good Medical Necessity - Tobacco Use Smoking Status: Never smoker Tobacco Use: Chew Meaningful Use Info Meaningful Use Diagnoses (Choose all that apply): None applicable
--- NOTE | 2020-05-07 11:00 | APP_PTH ---
PATIENT: ZIA LUJAN LOC: MS3 U#:[id number] AGE/SX: 50/M ROOM: [facility] [place] RE05/06/[address]: Dr. Annette Wynne MD : 1970 BED: 1 DIS: 05/09/2020 SPEC #: [id number] RECD: 05/07/20 12:10 STATUS: WILLA NITHIN #: [id number] BOAZ: 05/07/20 11:[address]: Kiet Mercado DEPT: SURGICAL PATHOLOGY RECD BY: Kristyn Shultz ENTERED: 05/07/20 14:20 SP TYPE: APPENDIX OTHR DR: MD Dr. Annette Tapia MD No Primary Care Phys Tissues: A - Appendix, NOS B - HERNIA Procedures: Surgery Specimen Level II Surgery Specimen Level IV HEADER OPERATION: Diagnostic laparoscopy vs right colectomy PRE-OP DIAGNOSIS: Abdominal pain; umbilical hernia TISSUE SUBMITTED: A - Ruptured appendix, B - Umbilical hernia and contents MICROSCOPIC DIAGNOSIS A. Ruptured appendix and portion of cecum: Ruptured acute appendicitis and periappendicitis. Portion of cecum, acute inflammation involving serosal surface and underlying muscularis propria. Negative for malignancy. B. Umbilical hernia and contents: Pieces of fibroadipose and fibroconnective tissue, consistent with hernia sac, hernia and content. ADRIANA:ricco 05/08/20 MICROSCOPIC DESCRIPTION Slides are reviewed. GROSS DESCRIPTION A - Received in formalin for intraoperative consultation labeled with the patient's name is a specimen designated ruptured appendix. The specimen consists of a portion of cecum and appendix and attached periappendiceal adipose tissue. The entire specimen measures 10 x 5 x 2 cm. Proximal resection margin is stapled. The specimen is inked and serially sectioned. Serial sections reveal the presence of appendix and no gross tumor. This information is conveyed to the surgeon intraoperatively. The appendix measures 10 cm in length and 1 cm in diameter. Focal area consistent with rupture is noted. No fecalith is identified. Portion of cecum measures up to 2 cm in length. No mucosal lesion is identified. Wire Steward sections are submitted in six cassettes as follow: 1 & 2 - appendix, tip, entirely submitted, 3 & 4 - more sections of appendix, 5 - proximal resection margin, 6??more sections cecum. / ADRIANA:ricco 05/07/20 B - Received in fixative is one container labeled with the patient's name and designated umbilical hernia and contents. The specimen consists of two pieces of yellow adipose tissue measuring in aggregate 3 x 2 x 1 cm. Sections do not reveal any mass lesion. Wire Steward sections are submitted in one cassette. / SJ:ricco 05/07/20 TC:2 CPT: 21798, 64789, 70842
--- NOTE | 2020-05-07 11:00 | FLU_PTH ---
PATIENT: ZIA LUJAN LOC: MSGregory U#:[id number] AGE/SX: 50/M [place]OM: [facility] [place]/06/[address]: Dr. Annette Wynne MD : 1970 BED: 1 DIS: 05/09/2020 SPEC #: [id number] RECD: 05/07/20 14:47 STATUS: WILLA REYariel #: [id number] BOAZ: 05/07/20 11:[address]: Kiet Mercado DEPT: CYTOLOGY RECD BY: Susan Mg ENTERED: 05/07/20 15:00 SP TYPE: Fluid OTHR DR: MD Dr. Annette Tapia MD No Primary Care Phys Tissues: Abdomen, NOS Procedures: Special Stain Group II Cytospin Fluid Comments: @ Specimen number changed from [id number] to [id number] @ on 05/07/20 at 1546 by RGOOD. HEADER OPERATION: Diagnostic laparoscopy vs right colectomy PRE-OP DIAGNOSIS: Abdominal pain; umbilical hernia TISSUE SUBMITTED: Abdominal fluid for cytology DIAGNOSIS CYTOLOGY Abdominal fluid for cytology (cytospin and cell block): Negative for malignant cells. Acute inflammation. Plant material. See comment. AM:ricco 05/08/20 COMMENT A fragment of plant material is identified in the sections of the cell block. Please correlate with surgical case [id number] in which a ruptured appendix was identified. Case has been reviewed in consultation with Dr. Valladares who concurs with the above diagnosis. IDC:S[facility] CYTOLOGY STUDY Slides are reviewed. CYTOLOGY GROSS Received is 5 ml of red thick turbid fluid labeled with the patient's name and and designated per the requisition as abdominal. Submitted for cytology preparation. / ricco 05/07/20 TC:2 CPT: 46138
[2020-05-07] MEDS: Bupivacaine 0.25% 30 ML Vial ×2 (11:19)
[2020-05-07] MEDS: BUPIVACAINE LIPOSOME/PF 20 ML VIAL OPERA.SITE (11:19)
--- NOTE | 2020-05-07 11:51 | PCM.PROGNOTE ---
<StewartMildred PRACTICE SUPPORT SPECIALIST - Last Filed: 05/07/20 12:11> Patient Problems: Active and Suspected Problems Abdominal pain (Acute) Umbilical hernia (Acute) Alcohol dependency (Acute) Tobacco dependence due to chewing tobacco (Acute) Subjective: Patient seen and examined. Reports improvement in abdominal bloating. Denies abdominal pain, nausea, vomiting. Patient to undergo laparoscopy later this morning. - Physical Exam Vitals/I&O's: Vital Signs Temp Pulse Resp BP Pulse Ox 98.7 F 81 18 133/86 H 96 05/07/20 08:16 05/07/20 08:16 05/07/20 08:16 05/07/20 08:16 05/07/20 08:16 Oxygen Delivery Method Room Air Weight: 220 lb 10.923 oz Body Mass Index (BMI) 32.5 Intake and Output for Last 24 Hours 05/05/20 05/06/20 05/07/20 23:59 23:59 23:59 Intake Total 539.58 / 539.58 918.83 / 918.83 Output Total 200 / 200 Balance 539.58 / 539.58 718.83 / 718.83 General: Alert, Oriented x3, Cooperative HEENT: Atraumatic, PERRLA, EOMI, Normocephalic Oral: Dry Mucosa Neck: Supple, No JVD, Negative Carotid Bruits Lungs: Clear to auscultation, Normal air movement Cardiovascular: Regular rate, No murmurs Abdomen: Bowel Sounds Present, Soft, Non Tender, - - Mild distention however improved from prior per patient. Extremities: No clubbing, No cyanosis, No edema, Capillary Refill Less than 3 Seconds Skin: No rashes, No breakdown Musculoskeletal: No Tenderness to Palpation of Joints or Extremities Neurological: Cranial nerves II-XII grossly intact, Neuro grossly intact Psych/Mental Status: Normal Affect, Appropriate Laboratory Results 05/06/20 18:18: WBC 6.3, RBC 3.90 L, Hgb 12.7 L, Hct 38.0 L, MCV 97.4 H, MCH 32.6 H, MCHC 33.4, RDW Std Deviation 40.3, RDW Coeff of Alejandro 11.4 L, Plt Count 174, MPV 8.7, Immature Gran % (Auto) 1.800 H, Neut % (Auto) 57.5, Lymph % (Auto) 24.1, [place] % (Auto) 15.8 H, Eos % (Auto) 0.3, Baso % (Auto) 0.5, Absolute Neuts (auto) 3.6, Absolute Lymphs (auto) 1.51, Nucleated RBC % 0 05/06/20 18:18: Sodium 139, Potassium 3.9, Chloride 101, Carbon Dioxide 31.0, Anion Gap 7, BUN 12, Creatinine 1.06, Estim Creat Clear Calc 83.37, Est GFR (MDRD) Af Amer 95, Est GFR (MDRD) Non-Af 79, BUN/Creatinine Ratio 11.3, Glucose 116 H, Calcium 9.4, Total Bilirubin 0.30, AST 15, ALT 18, Alkaline Phosphatase 55, Total Protein 8.5 H, Albumin 3.4, Globulin 5.1 H, Albumin/Globulin Ratio 0.7 L, Lipase 124 05/06/20 18:18: Phosphorus 3.9, Magnesium 2.4 05/06/20 20:20: Urine Color Yellow, Urine Clarity Clear, Urine pH 8.0, Ur Specific Offerman 1.015, Urine Protein 15 H, Urine Glucose (UA) Normal, Urine Ketones Negative, Urine Occult Blood Negative, Urine Nitrite Negative, Urine Bilirubin Negative, Urine Urobilinogen 4 H, Ur Leukocyte Esterase Negative, Urine RBC 0 SEEN, Urine WBC 0 SEEN, Ur Squamous Epith Cells 0 SEEN, Urine Bacteria 0 SEEN, Urine Mucus 0 SEEN 05/06/20 23:40: Urine Opiates Screen NEGATIVE, Urine Methadone Screen NEGATIVE, Ur Barbiturates Screen NEGATIVE, Ur Phencyclidine Scrn NEGATIVE, Ur Amphetamines Screen NEGATIVE, U Methamphetamin-MDMA NEGATIVE, U Benzodiazepines Scrn NEGATIVE, Urine Cocaine Screen NEGATIVE, U Cannabinoids Screen NEGATIVE, Ur Drug Screen Comment 05/06/20 23:55: Ethyl Alcohol < 3.0 05/07/20 04:55: WBC 5.6, RBC 3.55 L, Hgb 11.7 L, Hct 35.0 L, MCV 98.6 H, MCH 33.0 H, MCHC 33.4, RDW Std Deviation 41.1, RDW Coeff of Alejandro 11.3 L, Plt Count 145 L, MPV 8.9, Immature Gran % (Auto) 1.400 H, Neut % (Auto) 53.3, Lymph % (Auto) 24.3, [place] % (Auto) 19.9 H, Eos % (Auto) 0.7, Baso % (Auto) 0.4, Absolute Neuts (auto) 3.0, Absolute Lymphs (auto) 1.36, Nucleated RBC % 0, ESR 42 H 05/07/20 04:55: Sodium 138, Potassium 3.5, Chloride 104, Carbon Dioxide 29.0, Anion Gap 5, BUN 12, Creatinine 0.91, Estim Creat Clear Calc 97.12, Est GFR (MDRD) Af Amer 114, Est GFR (MDRD) Non-Af 94, BUN/Creatinine Ratio 13.2, Glucose 98, Calcium 8.1 L, Total Bilirubin 0.60, Direct Bilirubin 0.24, AST 14 L, ALT 16, Alkaline Phosphatase 45, C-React Prot Ext Range 137.00 H, Total Protein 7.1, Albumin 2.9 L, Globulin 4.2, Albumin/Globulin Ratio 0.7 L 05/07/20 04:55: PT 14.6, INR 1.2, APTT 37.3 H Current Medications Acetaminophen (Tylenol) 650 mg PO Q6H PRN PRN PRN Reason: Pain Score 1-3 /Temp>100.7 Al Hydroxide/Mg Hydroxide (Mylanta Ii) 30 ml PO Q6H PRN PRN PRN Reason: Gastric Burning Albuterol Sulfate (Ventolin Aerosols) 2.5 mg INHALATION Q2H PRN PRN PRN Reason: Dyspnea, wheezing Dicyclomine HCl (Bentyl) 20 mg PO Q6H PRN PRN PRN Reason: abdominal discomfort Famotidine (Pepcid) 20 mg PO BID [facility] Last Admin: 05/07/20 08:09 Dose: Not Given Documented by: Folic Acid (Folic Acid) 1 mg PO DAILY@0800 [facility] Stop: 05/09/20 08:01 Last Admin: 05/07/20 07:51 Dose: Not Given Documented by: Gabapentin (Neurontin) 300 mg PO Q8H PRN PRN PRN Reason: moderate to severe anxiety Hydralazine HCl (Apresoline Iv) 10 mg IV Q4H PRN PRN PRN Reason: SBP > 160 Hydroxyzine Pamoate (Vistaril Pamoate Capsule) 50 mg PO Q4H PRN PRN PRN Reason: mild anxiety Sodium Chloride () 1,000 mls @ 100 mls/hr IV .Q10H [facility] Last Admin: 05/07/20 05:52 Dose: 100 mls/hr Documented by: Piperacillin Sod/Tazobactam (Sod 3.375 gm/ Sodium Chloride) 50 mls @ 12.5 mls/hr IV Q8 [facility] Last Infusion: 05/07/20 10:29 Dose: Infused Documented by: Sodium Chloride () 250 mls @ 15 mls/hr IV .[id number] PRN PRN Reason: Saline Flush Last Infusion: 05/07/20 00:13 Dose: 0 mls/hr Documented by: Sodium Chloride () 250 mls @ 15 mls/hr IV .[id number] PRN PRN Reason: Additional IVPB Infusion Loperamide HCl (Imodium) 2 mg PO Q4H PRN PRN PRN Reason: LOOSE STOOLS Lorazepam (Ativan) 2 mg PO Q2H PRN PRN; Protocol PRN Reason: CIWA score > 8 but <15 Lorazepam (Ativan) 2 mg PO UD PRN; Protocol PRN Reason: CIWA score >/=15. Lorazepam (Ativan) 2 mg IV Q2H PRN PRN; Protocol PRN Reason: CIWA score > 8 but <15 Lorazepam (Ativan) 2 mg IV UD PRN; Protocol PRN Reason: CIWA score >/=15. Morphine Sulfate () 2 - 4 mg IV Q3H PRN PRN PRN Reason: Pain Score 6-10/10 Morphine Sulfate () 1 - 2 mg IV Q4H PRN PRN PRN Reason: Pain Score 4-5/10 Multivitamins/Minerals (Multivitamin With Minerals (Bkc)) 1 tablet PO DAILYCM [facility] Last Admin: 05/07/20 08:08 Dose: Not Given Documented by: Nicotine (Nicoderm Cq (Pbkc)) 21 mg TRANSDERM. DAILY [facility] Ondansetron HCl (Zofran) 4 mg IV Q8H PRN PRN PRN Reason: Nausea Oxycodone HCl (Oxyir) 5 mg PO Q4H PRN PRN PRN Reason: Pain Score 4-5/10 Phenobarbital (Phenobarbital) 97.2 mg PO Q4H [facility]; Taper Stop: 05/11/20 07:44 Last Admin: 05/07/20 07:01 Dose: 97.2 mg Documented by: Prochlorperazine Edisylate (Compazine Iv) 10 mg IV Q6H PRN PRN PRN Reason: Nausea/Vomiting Sodium Chloride () 10 - 40 ml IV UD PRN PRN Reason: SALINE FLUSH Thiamine HCl (Vitamin B1) 100 mg PO BIDCM [facility] Stop: 05/09/20 17:01 Last Admin: 05/07/20 08:09 Dose: Not Given Documented by: Trazodone HCl (Desyrel) 100 mg PO QHS PRN PRN PRN Reason: INSOMNIA Medical Necessity - Tobacco Use Smoking Status: Never smoker Tobacco Use: Chew Assessment/Plan All Active Problems Abdominal pain (Acute) Umbilical hernia (Acute) Alcohol dependency (Acute) Tobacco dependence due to chewing tobacco (Acute) 1. Acute appendicitis versus chronic inflammatory appendicitis versus possible malignancy-General surgery following. Patient to undergo laparoscopy for further evaluation. Afebrile. Continue IV Zosyn empirically. PRN pain regimen. Management per general surgery. 2. Elevated blood pressure without history of hypertension-suspect elevated secondary to pain related to #1. Blood pressure now stable. Continue to monitor. 3. Alcohol dependence with history of withdrawal-not interested in sobriety. Phenobarb taper for seizure/withdrawal prophylaxis. CIWA. 4. Chewing tobacco use- encouraged cessation. 5. BPH- continue flomax. DVT prophylaxis- SCDs This patient was seen by VICTOR M Brown under the supervision of Dr. Wynne. <Annette Wynne - Last Filed: 05/07/20 15:34> - Physical Exam Vitals/I&O's: Vital Signs Temp Pulse Resp BP Pulse Ox 98.4 F 82 18 116/78 95 05/07/20 15:15 05/07/20 15:15 05/07/20 15:15 05/07/20 15:15 05/07/20 15:15 Oxygen Flow Rate (L/min) 2 Oxygen Delivery Method Room Air Weight: 220 lb 10.923 oz Body Mass Index (BMI) 32.5 Intake and Output for Last 24 Hours 05/05/20 05/06/20 05/07/20 23:59 23:59 23:59 Intake Total 539.58 / 539.58 1918.83 / 1918.83 Output Total 275 / 275 Balance 539.58 / 539.58 1643.83 / 1643.83 Laboratory Results 05/06/20 18:18: WBC 6.3, RBC 3.90 L, Hgb 12.7 L, Hct 38.0 L, MCV 97.4 H, MCH 32.6 H, MCHC 33.4, RDW Std Deviation 40.3, RDW Coeff of Alejandro 11.4 L, Plt Count 174, MPV 8.7, Immature Gran % (Auto) 1.800 H, Neut % (Auto) 57.5, Lymph % (Auto) 24.1, [place] % (Auto) 15.8 H, Eos % (Auto) 0.3, Baso % (Auto) 0.5, Absolute Neuts (auto) 3.6, Absolute Lymphs (auto) 1.51, Nucleated RBC % 0 05/06/20 18:18: Sodium 139, Potassium 3.9, Chloride 101, Carbon Dioxide 31.0, Anion Gap 7, BUN 12, Creatinine 1.06, Estim Creat Clear Calc 83.37, Est GFR (MDRD) Af Amer 95, Est GFR (MDRD) Non-Af 79, BUN/Creatinine Ratio 11.3, Glucose 116 H, Calcium 9.4, Total Bilirubin 0.30, AST 15, ALT 18, Alkaline Phosphatase 55, Total Protein 8.5 H, Albumin 3.4, Globulin 5.1 H, Albumin/Globulin Ratio 0.7 L, Lipase 124 05/06/20 18:18: Phosphorus 3.9, Magnesium 2.4 05/06/20 20:20: Urine Color Yellow, Urine Clarity Clear, Urine pH 8.0, Ur Specific Offerman 1.015, Urine Protein 15 H, Urine Glucose (UA) Normal, Urine Ketones Negative, Urine Occult Blood Negative, Urine Nitrite Negative, Urine Bilirubin Negative, Urine Urobilinogen 4 H, Ur Leukocyte Esterase Negative, Urine RBC 0 SEEN, Urine WBC 0 SEEN, Ur Squamous Epith Cells 0 SEEN, Urine Bacteria 0 SEEN, Urine Mucus 0 SEEN 05/06/20 23:40: Urine Opiates Screen NEGATIVE, Urine Methadone Screen NEGATIVE, Ur Barbiturates Screen NEGATIVE, Ur Phencyclidine Scrn NEGATIVE, Ur Amphetamines Screen NEGATIVE, U Methamphetamin-MDMA NEGATIVE, U Benzodiazepines Scrn NEGATIVE, Urine Cocaine Screen NEGATIVE, U Cannabinoids Screen NEGATIVE, Ur Drug Screen Comment 05/06/20 23:55: Ethyl Alcohol < 3.0 05/07/20 04:55: WBC 5.6, RBC 3.55 L, Hgb 11.7 L, Hct 35.0 L, MCV 98.6 H, MCH 33.0 H, MCHC 33.4, RDW Std Deviation 41.1, RDW Coeff of Alejandro 11.3 L, Plt Count 145 L, MPV 8.9, Immature Gran % (Auto) 1.400 H, Neut % (Auto) 53.3, Lymph % (Auto) 24.3, [place] % (Auto) 19.9 H, Eos % (Auto) 0.7, Baso % (Auto) 0.4, Absolute Neuts (auto) 3.0, Absolute Lymphs (auto) 1.36, Nucleated RBC % 0, ESR 42 H 05/07/20 04:55: Sodium 138, Potassium 3.5, Chloride 104, Carbon Dioxide 29.0, Anion Gap 5, BUN 12, Creatinine 0.91, Estim Creat Clear Calc 97.12, Est GFR (MDRD) Af Amer 114, Est GFR (MDRD) Non-Af 94, BUN/Creatinine Ratio 13.2, Glucose 98, Calcium 8.1 L, Total Bilirubin 0.60, Direct Bilirubin 0.24, AST 14 L, ALT 16, Alkaline Phosphatase 45, C-React Prot Ext Range 137.00 H, Total Protein 7.1, Albumin 2.9 L, Globulin 4.2, Albumin/Globulin Ratio 0.7 L 05/07/20 04:55: PT 14.6, INR 1.2, APTT 37.3 H Current Medications Acetaminophen (Tylenol) 650 mg PO Q6H PRN PRN PRN Reason: Pain Score 1-3 /Temp>100.7 Al Hydroxide/Mg Hydroxide (Mylanta Ii) 30 ml PO Q6H PRN PRN PRN Reason: Gastric Burning Albuterol Sulfate (Ventolin Aerosols) 2.5 mg INHALATION Q2H PRN PRN PRN Reason: Dyspnea, wheezing Dicyclomine HCl (Bentyl) 20 mg PO Q6H PRN PRN PRN Reason: abdominal discomfort Famotidine (Pepcid) 20 mg PO BID [facility] Last Admin: 05/07/20 08:09 Dose: Not Given Documented by: Folic Acid (Folic Acid) 1 mg PO DAILY@0800 [facility] Stop: 05/09/20 08:01 Last Admin: 05/07/20 07:51 Dose: Not Given Documented by: Gabapentin (Neurontin) 300 mg PO Q8H PRN PRN PRN Reason: moderate to severe anxiety Hydralazine HCl (Apresoline Iv) 10 mg IV Q4H PRN PRN PRN Reason: SBP > 160 Hydroxyzine Pamoate (Vistaril Pamoate Capsule) 50 mg PO Q4H PRN PRN PRN Reason: mild anxiety Sodium Chloride () 1,000 mls @ 100 mls/hr IV .Q10H [facility] Last Admin: 05/07/20 14:02 Dose: 100 mls/hr Documented by: Piperacillin Sod/Tazobactam (Sod 3.375 gm/ Sodium Chloride) 50 mls @ 12.5 mls/hr IV Q8 [facility] Last Admin: 05/07/20 14:05 Dose: 12.5 mls/hr Documented by: Sodium Chloride () 250 mls @ 15 mls/hr IV .[id number] PRN PRN Reason: Saline Flush Last Infusion: 05/07/20 00:13 Dose: 0 mls/hr Documented by: Sodium Chloride () 250 mls @ 15 mls/hr IV .[id number] PRN PRN Reason: Additional IVPB Infusion Loperamide HCl (Imodium) 2 mg PO Q4H PRN PRN PRN Reason: LOOSE STOOLS Lorazepam (Ativan) 2 mg PO Q2H PRN PRN; Protocol PRN Reason: CIWA score > 8 but <15 Lorazepam (Ativan) 2 mg PO UD PRN; Protocol PRN Reason: CIWA score >/=15. Lorazepam (Ativan) 2 mg IV Q2H PRN PRN; Protocol PRN Reason: CIWA score > 8 but <15 Lorazepam (Ativan) 2 mg IV UD PRN; Protocol PRN Reason: CIWA score >/=15. Morphine Sulfate () 2 - 4 mg IV Q3H PRN PRN PRN Reason: Pain Score 6-10/10 Morphine Sulfate () 1 - 2 mg IV Q4H PRN PRN PRN Reason: Pain Score 4-5/10 Multivitamins/Minerals ([facility] Last Admin: 05/07/20 08:08 Dose: Not Given Documented by: Nicotine (Nicoderm Cq (Pbkc)) 21 mg TRANSDERM. DAILY [facility] Last Admin: 05/07/20 15:26 Dose: 21 mg Documented by: Ondansetron HCl (Zofran) 4 mg IV Q8H PRN PRN PRN Reason: Nausea Oxycodone HCl (Oxyir) 5 mg PO Q4H PRN PRN PRN Reason: Pain Score 4-5/10 Phenobarbital (Phenobarbital) 97.2 mg PO Q4H [facility]; Taper Stop: 05/11/20 07:44 Last Admin: 05/07/20 07:01 Dose: 97.2 mg Documented by: Prochlorperazine Edisylate (Compazine Iv) 10 mg IV Q6H PRN PRN PRN Reason: Nausea/Vomiting Sodium Chloride () 10 - 40 ml IV UD PRN PRN Reason: SALINE FLUSH Thiamine HCl (Vitamin B1) 100 mg PO BIDCM [facility] Stop: 05/09/20 17:01 Last Admin: 05/07/20 08:09 Dose: Not Given Documented by: Trazodone HCl (Desyrel) 100 mg PO QHS PRN PRN PRN Reason: INSOMNIA Assessment/Plan Patient seen by VICTOR M Brown under my supervision. Patient seen and examined. He was admitted with a complaint of abdominal pain. General surgery on board and symptoms were thought to be due to acute appendicitis versus chronic inflammatory appendicitis versus possible malignancy. Patient scheduled to have exploratory laparoscopy today. Patient seen this morning and had no complaints. Abdominal pain had improved though he complained of mild bloating. Review of systems otherwise negative. Labs and vitals reviewed. Home medication reviewed and reconciled. O/E: Vital Signs Temp Pulse Resp BP Pulse Ox 98.4 F 82 18 116/78 95 05/07/20 15:15 05/07/20 15:15 05/07/20 15:15 05/07/20 15:15 05/07/20 15:15 General: Alert, Oriented x3, Cooperative HEENT: Atraumatic, PERRLA, EOMI, Normocephalic Oral: Dry Mucosa Neck: Supple, No JVD, Negative Carotid Bruits Lungs: Clear to auscultation, Normal air movement Cardiovascular: Regular rate, No murmurs Abdomen: Bowel Sounds Present, Soft, Non Tender, - - minimal distension Extremities: No clubbing, No cyanosis, No edema, Capillary Refill Less than 3 Seconds Skin: No rashes, No breakdown Musculoskeletal: No Tenderness to Palpation of Joints or Extremities Neurological: Cranial nerves II-XII grossly intact, Neuro grossly intact Psych/Mental Status: Normal Affect, Appropriate Patient has a history of chronic alcohol abuse and is currently on alcohol withdrawal protocol with phenobarbital. CIWA score this morning is 5. Will continue monitoring CIWA scoring keep on phenobarbital withdrawal protocol. He did have surgery today findings of which showed chronically ruptured appendicitis with appendiceal abscess and umbilical hernia he had laparoscopy with conversion to hand-assisted laparoscopic appendectomy and debridement of appendiceal abscess cavity. He is continue current IV antibiotics. SCDs for DVT prophylaxis. Pain management as per general surgery. Blood pressures initially elevated rated on admission which was thought to be due to pain. Blood pressure now within normal limits. Will monitor. Rest as per VICTOR M Brown's notes which I have reviewed and endorsed. Inpatient E&M: 45301 Subs Hosp L2
[2020-05-07] MEDS: Thrombin 5,000 IU Kit (PSA) 5,000 IU Vial 5000 IU (12:27)
--- NOTE | 2020-05-07 12:55 | PCM.OPRPT ---
Problem List (1) Abdominal pain Status: Acute Qualifiers: Abdominal location: lower abdomen, unspecified Qualified Code(s): R10.30 - Lower abdominal pain, unspecified (2) Umbilical hernia Status: Acute Qualifiers: Obstruction and gangrene presence: without obstruction or gangrene Qualified Code(s): K42.9 - Umbilical hernia without obstruction or gangrene (3) Alcohol dependency Status: Acute Qualifiers: Complication of substance-induced condition: uncomplicated (4) Tobacco dependence due to chewing tobacco Status: Acute Report of Operation Date of Procedure: 05/07/20 Pre-Operative Diagnosis: Right lower quadrant inflammatory mass Post-Operative Diagnosis: Chronically ruptured appendicitis with appendiceal abscess. Umbilical hernia Surgery/Procedure Performed:: Laparoscopy with conversion to hand-assisted laparoscopic appendectomy and debridement of appendiceal abscess cavity. Laparoscopic bilateral tap block. Umbilical herniorrhaphy Description of Surgical Findings:: Timeout and informed consent was obtained. 50-year-old gentleman was taken to the operating placed supine on the table underwent general endotracheal intubation and anesthesia. He is on therapeutic Zosyn therapy. The abdomen was sterilely prepped and draped. Ioban draping was used. The patient has an umbilical hernia. A vertical incision was made at the umbilicus the hernia sac identified and was excised with electrocautery. The preperitoneal tissue was completely dissected free. Varies needle inserted saline drop test performed. The abdomen was insufflated with CO2 to a pressure of 12 mmHg pressure. A 10 mm trocar was inserted. Inspection revealed what appeared to be slight amount of superficial purulence in the right lower quadrant. 5 mm trochars were placed on the right upper mid abdomen and in the right lower quadrant. There was induration of the wall of the cecum. The terminal portion of the ileum was overlying what appeared to be this inflammatory mass. Upon providing retraction to the cecal area purulence jetted there from consistent with a chronic appendiceal abscess. Specimen was obtained for Gram stain culture and sensitivity. Further laparoscopic dissection revealed the base of the appendix and thickening at the base however the abscess cavity itself could not be defined using the laparoscopic instruments. Did not feel comfortable proceeding in that light so I lengthened the umbilical incision vertically placed a hand assist port. With finger dissection I was able to better define the appendix and the cavity. I used a 60 mm [place] stapler to transect the appendix I did include a portion of the cecum because of induration of the wall of the cecum. 2 firings of the [place] was required. Then using blunt dissection I was able to release the remainder of the appendix and abscess. This was immediately submitted for gross evaluation to assure no tumor. No tumor was identified. A laparotomy pack was used to apply pressure and obtain hemostasis. There was no visible vessel bleeding. I treated the area with topical thrombin. I then performed a laparoscopic bilateral tap block using a combination of 0.25% Marcaine and Exparel. This was done under laparoscopic guidance. I exited a 10 round YANIRA drain through the right lower quadrant port site. That was secured to skin with 3-0 nylon. The drain was placed so as to be in the pelvis and along the right pericolic gutter. The greater omentum was placed overlying. The terminal ileum had been briefly inspected and there was no further adherence. Trochars were removed. The abdomen was allowed to deflate using an antiviral valve. I did have to place an additional 10 mm trocar in the mid epigastrium to allow for a hand assist port to be in place and to allow for stapling of the cecal base. That site was closed with a [id number] suture of 0 Vicryl. The midline umbilical wound and supraumbilical wound was closed with a running #1 Prolene. This acted as a closure for the umbilical hernia as well. The remaining wounds were closed with running or interrupted subcuticular 4-0 Monocryl. Steri-Strips Telfa OpSite dressings gauze dressings applied were appropriate. Sponge and instrument and needle counts were reported to the surgeon to be correct. Specimen umbilical hernia sac and contents. Ruptured appendix with appendix and portion of abscess cavity. Drains 15 round YANIRA drain. Blood loss 50 cc. Kiet Mercado M.D., F.A.C.S. Type of Anesthesia:: General Anesthesiologist: Marquise Finney
--- NOTE | 2020-05-07 14:09 | CPS ---
started by nursing
[2020-05-07] MEDS: Thiamine Hydrochloride 100 MG Tablet PO (15:43)
--- NOTE | 2020-05-07 18:23 | NURSING ---
DR HAMM CALLED (1800) TO CHECK ON PT STATUS. WANTS PT UP WALKING FREQUENTLY
[2020-05-07] MEDS: oxyCODONE 5 MG Tablet PO (19:35)
[2020-05-07] MEDS: Acetaminophen 325 MG Tablet 650 MG PO (19:36)
--- NOTE | 2020-05-07 20:10 | NURSING ---
pt ambulated a lap in halls and sat up in chair. pt tolerated well
[2020-05-08] MEDS: 0.9% Normal Saline 1,000 ML 100 ML IV (00:49)
[2020-05-08 03:18] VITALS: BP 106/67; PULSE 74; RESP 18; TEMP 37.2; O2SAT 94
[2020-05-08] MEDS: Phenobarbital 32.4 MG Tablet 64.8 MG PO ×6 (03:20→23:01)
[2020-05-08] MEDS: oxyCODONE 5 MG Tablet PO ×3 (03:20→23:01)
[2020-05-08] MEDS: Acetaminophen 325 MG Tablet 650 MG PO ×2 (03:20→23:00)
--- NOTE | 2020-05-08 06:12 | PCM.PN.SRG ---
Patient Problems: Active and Suspected Problems Abdominal pain (Acute) Umbilical hernia (Acute) Alcohol dependency (Acute) Tobacco dependence due to chewing tobacco (Acute) Subjective: Patient notes he has had a very small amount of flatus. At rest he notes a discomfort of 5. He has been able to ambulate in the plascencia 4 times. No nausea. - Physical Exam Vitals/I&O's: Vital Signs Temp Pulse Resp BP Pulse Ox 98.9 F 74 18 106/67 94 05/08/20 03:18 05/08/20 03:18 05/08/20 03:18 05/08/20 03:18 05/08/20 03:18 Oxygen Flow Rate (L/min) 2 Oxygen Delivery Method Room Air Weight: 220 lb 10.923 oz Body Mass Index (BMI) 32.5 Intake and Output for Last 24 Hours 05/06/20 05/07/20 05/08/20 23:59 23:59 23:59 Intake Total 539.58 / 539.58 2207.16 / 2327.16 939.58 / 939.58 Output Total 290 / 600 890 / 890 Balance 539.58 / 539.58 1917.16 / 1727.16 49.58 / 49.58 Lungs: Clear to auscultation Abdomen: Soft, Hypoactive Bowel Sounds, Distended, - - YANIRA site is clean. Serosanguineous drainage within the YANIRA. Current Medications Acetaminophen (Tylenol) 650 mg PO Q6H PRN PRN PRN Reason: Pain Score 1-3 /Temp>100.7 Last Admin: 05/08/20 03:20 Dose: 650 mg Documented by: Al Hydroxide/Mg Hydroxide (Mylanta Ii) 30 ml PO Q6H PRN PRN PRN Reason: Gastric Burning Albuterol Sulfate (Ventolin Aerosols) 2.5 mg INHALATION Q2H PRN PRN PRN Reason: Dyspnea, wheezing Dicyclomine HCl (Bentyl) 20 mg PO Q6H PRN PRN PRN Reason: abdominal discomfort Famotidine (Pepcid) 20 mg PO BID [facility] Last Admin: 05/07/20 22:49 Dose: 20 mg Documented by: Folic Acid (Folic Acid) 1 mg PO DAILY@0800 [facility] Stop: 05/09/20 08:01 Last Admin: 09/10/20 07:51 Dose: Not Given Documented by: Gabapentin (Neurontin) 300 mg PO Q8H PRN PRN PRN Reason: moderate to severe anxiety Hydralazine HCl (Apresoline Iv) 10 mg IV Q4H PRN PRN PRN Reason: SBP > 160 Hydroxyzine Pamoate (Vistaril Pamoate Capsule) 50 mg PO Q4H PRN PRN PRN Reason: mild anxiety Sodium Chloride () 1,000 mls @ 30 mls/hr IV .[id number] [facility] Last Admin: 05/08/20 00:49 Dose: 100 mls/hr Documented by: Piperacillin Sod/Tazobactam (Sod 3.375 gm/ Sodium Chloride) 50 mls @ 12.5 mls/hr IV Q8 [facility] Last Admin: 05/08/20 05:11 Dose: 12.5 mls/hr Documented by: Sodium Chloride () 250 mls @ 15 mls/hr IV .[id number] PRN PRN Reason: Saline Flush Last Infusion: 05/08/20 05:12 Dose: 0 mls/hr Documented by: Sodium Chloride () 250 mls @ 15 mls/hr IV .[id number] PRN PRN Reason: Additional IVPB Infusion Loperamide HCl (Imodium) 2 mg PO Q4H PRN PRN PRN Reason: LOOSE STOOLS Lorazepam (Ativan) 2 mg PO Q2H PRN PRN; Protocol PRN Reason: CIWA score > 8 but <15 Lorazepam (Ativan) 2 mg PO UD PRN; Protocol PRN Reason: CIWA score >/=15. Lorazepam (Ativan) 2 mg IV Q2H PRN PRN; Protocol PRN Reason: CIWA score > 8 but <15 Lorazepam (Ativan) 2 mg IV UD PRN; Protocol PRN Reason: CIWA score >/=15. Morphine Sulfate () 2 - 4 mg IV Q3H PRN PRN PRN Reason: Pain Score 6-10/10 Morphine Sulfate () 1 - 2 mg IV Q4H PRN PRN PRN Reason: Pain Score 4-5/10 Multivitamins/Minerals (Multivitamin With Minerals (Bkc)) [facility] Last Admin: 05/07/20 08:08 Dose: Not Given Documented by: Nicotine (Nicoderm Cq (Pbkc)) 21 mg TRANSDERM. DAILY [facility] Last Admin: 05/07/20 15:26 Dose: 21 mg Documented by: Ondansetron HCl (Zofran) 4 mg IV Q8H PRN PRN PRN Reason: Nausea Oxycodone HCl (Oxyir) 5 mg PO Q4H PRN PRN PRN Reason: Pain Score 4-5/10 Last Admin: 05/08/20 03:20 Dose: 5 mg Documented by: Phenobarbital (Phenobarbital) 97.2 mg PO Q4H [facility]; Taper Stop: 05/11/20 07:44 Last Admin: 05/08/20 03:20 Dose: 97.2 mg Documented by: Prochlorperazine Edisylate (Compazine Iv) 10 mg IV Q6H PRN PRN PRN Reason: Nausea/Vomiting Sodium Chloride () 10 - 40 ml IV UD PRN PRN Reason: SALINE FLUSH Thiamine HCl (Vitamin B1) 100 mg PO BIDCM [facility] Stop: 05/09/20 17:01 Last Admin: 05/07/20 15:43 Dose: 100 mg Documented by: Trazodone HCl (Desyrel) 100 mg PO QHS PRN PRN PRN Reason: INSOMNIA Medical Necessity - Tobacco Use Smoking Status: Never smoker Tobacco Use: Chew Assessment/Plan All Active Problems Abdominal pain (Acute) Umbilical hernia (Acute) Alcohol dependency (Acute) Tobacco dependence due to chewing tobacco (Acute) Will initiate clear liquids. Patient continued to encouraged to be ambulating. We will continue IV antibiotics. Laboratories pending. I anticipate ongoing hospitalization today with IV antibiotics. Hopeful discharge tomorrow. Dr. Diallo will cover in my absence. I will check back him the patient later today.
[2020-05-08 06:17] LABS: Absolute Neutrophil Count 5.2 X10^3/uL (2.0-7.7); Hematocrit 33.2 % (40-54); Hemoglobin 10.7 g/dL (13.0-16.5); Mean Corp Hgb Conc 32.2 g/dL (32-36); Mean Corpuscular Hgb 31.7 pg (27.0-32.0); Mean Corpuscular Volume 98.2 fL (80-94); Mean Platelet Vol. 8.8 fl (6.2-12.0); Monocyte# 0.96 X10^3/uL; Monocyte% 13.1 % (0-10); NRBC Flagged by Analyzer 0 % (0-5); Neutrophil # 5.17 X10^3/uL (2.7-7.7); Neutrophil % 70.8 % (47-70); POSITIVE MORPHOLOGY YES; Platelet Count 177 K/mm3 (150-450); RBC Distribution Width CV 11.1 % (11.6-14.6); RBC Distribution Width SD 39.6 fl (35.1-43.9); Red Blood Count 3.38 M/mm3 (4.6-6.2); White Blood Count 7.3 K/mm3 (4.4-11.0)
[2020-05-08 06:21] LABS: Differential Indicated SCAN CRITERIA MET
[2020-05-08 06:44] LABS: Differential Comment SCANNED
[2020-05-08 07:06] VITALS: O2SAT 96
[2020-05-08] MEDS: Multivitamins,Ther W-Minerals Tablet 1 TABLET PO (08:09)
[2020-05-08] MEDS: Thiamine Hydrochloride 100 MG Tablet PO ×2 (08:09→16:52)
[2020-05-08] MEDS: Folic Acid 1 MG Tablet PO (08:09)
[2020-05-08] MEDS: Famotidine 20 MG Tablet PO ×2 (08:10→23:07)
[2020-05-08 08:30] VITALS: BP 122/84; PULSE 80; RESP 16; TEMP 36.9; O2SAT 97
--- NOTE | 2020-05-08 10:58 | PN_ITS ---
<Guille Williamssica ZINC PLATER - Last Filed: 05/08/20 11:04> Patient Problems: Active and Suspected Problems Abdominal pain (Acute) Umbilical hernia (Acute) Alcohol dependency (Acute) Tobacco dependence due to chewing tobacco (Acute) Right inguinal hernia (Acute) Subjective: Patient seen and examined. Denies significant abdominal pain. Tolerating clear liquid diet. Denies nausea, vomiting. Denies fever, chills. Eager to return home. - Physical Exam Vitals/I&O's: Vital Signs Temp Pulse Resp BP Pulse Ox 98.5 F 80 16 122/84 H 97 05/08/20 08:30 05/08/20 08:30 05/08/20 08:30 05/08/20 08:30 05/08/20 08:30 Oxygen Flow Rate (L/min) 2 Oxygen Delivery Method Room Air Weight: 220 lb 10.923 oz Body Mass Index (BMI) 32.5 Intake and Output for Last 24 Hours 05/06/20 05/07/20 05/08/20 23:59 23:59 23:59 Intake Total 539.58 / 539.58 2207.16 / 2327.16 939.58 / 939.58 Output Total 290 / 600 890 / 890 Balance 539.58 / 539.58 1917.16 / 1727.16 49.58 / 49.58 General: Alert, Oriented x3, Cooperative HEENT: Atraumatic, PERRLA, EOMI, Normocephalic Neck: Supple, No JVD, Negative Carotid Bruits Lungs: Clear to auscultation, Normal air movement Cardiovascular: Regular rate, No murmurs Abdomen: Bowel Sounds Present, Soft, Tender, - - Lap sites intact, YANIRA drain in place Extremities: No clubbing, No cyanosis, No edema, Capillary Refill Less than 3 Seconds Skin: No rashes, No breakdown Musculoskeletal: No Tenderness to Palpation of Joints or Extremities Neurological: Cranial nerves II-XII grossly intact, Neuro grossly intact Psych/Mental Status: Normal Affect, Appropriate Laboratory Results 05/08/20 06:05: WBC 7.3, RBC 3.38 L, Hgb 10.7 L, Hct 33.2 L, MCV 98.2 H, MCH 31.7, MCHC 32.2, RDW Std Deviation 39.6, RDW Coeff of Alejandro 11.1 L, Plt Count 177, MPV 8.8, Immature Gran % (Auto) 1.100 H, Neut % (Auto) 70.8 H, Lymph % (Auto) 15.0 L, Becker % (Auto) 13.1 H, Eos % (Auto) 0.0, Baso % (Auto) 0.0, Absolute Neuts (auto) 5.2, Absolute Lymphs (auto) 1.10, Nucleated RBC % 0, Differential Comment SCANNED Current Medications Acetaminophen (Tylenol) 650 mg PO Q6H PRN PRN PRN Reason: Pain Score 1-3 /Temp>100.7 Last Admin: 05/08/20 03:20 Dose: 650 mg Documented by: Al Hydroxide/Mg Hydroxide (Mylanta Ii) 30 ml PO Q6H PRN PRN PRN Reason: Gastric Burning Albuterol Sulfate (Ventolin Aerosols) 2.5 mg INHALATION Q2H PRN PRN PRN Reason: Dyspnea, wheezing Dicyclomine HCl (Bentyl) 20 mg PO Q6H PRN PRN PRN Reason: abdominal discomfort Famotidine (Pepcid) 20 mg PO BID [facility] Last Admin: 05/08/20 08:10 Dose: 20 mg Documented by: Folic Acid (Folic Acid) 1 mg PO DAILY@0800 [facility] Stop: 05/09/20 08:01 Last Admin: 05/08/20 08:09 Dose: 1 mg Documented by: Gabapentin (Neurontin) 300 mg PO Q8H PRN PRN PRN Reason: moderate to severe anxiety Hydralazine HCl (Apresoline Iv) 10 mg IV Q4H PRN PRN PRN Reason: SBP > 160 Hydroxyzine Pamoate (Vistaril Pamoate Capsule) 50 mg PO Q4H PRN PRN PRN Reason: mild anxiety Sodium Chloride () 1,000 mls @ 30 mls/hr IV .[id number] [facility] Last Admin: 05/08/20 00:49 Dose: 100 mls/hr Documented by: Piperacillin Sod/Tazobactam (Sod 3.375 gm/ Sodium Chloride) 50 mls @ 12.5 mls/hr IV Q8 [facility] Last Admin: 05/08/20 05:11 Dose: 12.5 mls/hr Documented by: Sodium Chloride () 250 mls @ 15 mls/hr IV .[id number] PRN PRN Reason: Saline Flush Last Infusion: 05/08/20 05:12 Dose: 0 mls/hr Documented by: Sodium Chloride () 250 mls @ 15 mls/hr IV .[id number] PRN PRN Reason: Additional IVPB Infusion Loperamide HCl (Imodium) 2 mg PO Q4H PRN PRN PRN Reason: LOOSE STOOLS Lorazepam (Ativan) 2 mg PO Q2H PRN PRN; Protocol PRN Reason: CIWA score > 8 but <15 Lorazepam (Ativan) 2 mg PO UD PRN; Protocol PRN Reason: CIWA score >/=15. Lorazepam (Ativan) 2 mg IV Q2H PRN PRN; Protocol PRN Reason: CIWA score > 8 but <15 Lorazepam (Ativan) 2 mg IV UD PRN; Protocol PRN Reason: CIWA score >/=15. Morphine Sulfate () 2 - 4 mg IV Q3H PRN PRN PRN Reason: Pain Score 6-10/10 Morphine Sulfate () 1 - 2 mg IV Q4H PRN PRN PRN Reason: Pain Score 4-5/10 Multivitamins/Minerals ([facility]ivitamin With Minerals (Bkc)) [facility] Last Admin: 05/08/20 08:09 Dose: 1 tablet Documented by: Nicotine (Nicoderm Cq (Pbkc)) 21 mg TRANSDERM. DAILY [facility] Last Admin: 05/08/20 08:14 Dose: 21 mg Documented by: Nicotine Polacrilex (Rugby Nicotine (Bkc)) 2 mg PO Q2H PRN PRN PRN Reason: nicotine withdrawal Ondansetron HCl (Zofran) 4 mg IV Q8H PRN PRN PRN Reason: Nausea Oxycodone HCl (Oxyir) 5 mg PO Q4H PRN PRN PRN Reason: Pain Score 4-5/10 Last Admin: 05/08/20 08:08 Dose: 5 mg Documented by: Phenobarbital (Phenobarbital) 64.8 mg PO Q4H [facility]; Taper Stop: 05/11/20 07:44 Last Admin: 05/08/20 08:08 Dose: 64.8 mg Documented by: Prochlorperazine Edisylate (Compazine Iv) 10 mg IV Q6H PRN PRN PRN Reason: Nausea/Vomiting Sodium Chloride () 10 - 40 ml IV UD PRN PRN Reason: SALINE FLUSH Thiamine [facility]amin [facility]) [facility] Stop: 05/09/20 17:01 Last Admin: 05/08/20 08:09 Dose: 100 mg Documented by: Trazodone HCl (Desyrel) 100 mg PO QHS PRN PRN PRN Reason: INSOMNIA Medical Necessity - Tobacco Use Smoking Status: Never smoker Tobacco Use: Chew Assessment/Plan All Active Problems Abdominal pain (Acute) Umbilical hernia (Acute) Alcohol dependency (Acute) Tobacco dependence due to chewing tobacco (Acute) Right inguinal hernia (Acute) 1. Chronically ruptured appendicitis with appendiceal abscess-General surgery following. Patient underwent laparoscopy with conversion to hand-assisted laparoscopic appendectomy and debridement of appendiceal abscess cavity. Umbil ical herniography. Continue IV Zosyn empirically. PRN pain regimen. Management per general surgery. Anticipate 1 more day of IV antibiotics prior to returning home. Tolerating clear liquid diet. 2. Elevated blood pressure without history of hypertension-suspect elevated secondary to pain related to #1. Blood pressure now stable. Continue to monitor. 3. Alcohol dependence with history of withdrawal-not interested in sobriety. Phenobarb taper for seizure/withdrawal prophylaxis. CIWA. 4. Chewing tobacco use- encouraged cessation. 5. BPH- continue flomax. DVT prophylaxis- SCDs Discharge planning: Medically stable for discharge pending surgical clearance. This patient was seen by VICTOR M Brown under the supervision of Dr. Wynne. <Annette Wynne - Last Filed: 05/08/20 11:29> - Physical Exam Vitals/I&O's: Vital Signs Temp Pulse Resp BP Pulse Ox 98.5 F 80 16 122/84 H 97 05/08/20 08:30 05/08/20 08:30 05/08/20 08:30 05/08/20 08:30 05/08/20 08:30 Oxygen Flow Rate (L/min) 2 Oxygen Delivery Method Room Air Weight: 220 lb 10.923 oz Body Mass Index (BMI) 32.5 Intake and Output for Last 24 Hours 05/06/20 05/07/20 05/08/20 23:59 23:59 23:59 Intake Total 539.58 / 539.58 2207.16 / 2327.16 1624.58 / 1624.58 Output Total 290 / 600 890 / 890 Balance 539.58 / 539.58 1917.16 / 1727.16 734.58 / 734.58 Laboratory Results 05/08/20 06:05: WBC 7.3, RBC 3.38 L, Hgb 10.7 L, Hct 33.2 L, MCV 98.2 H, MCH 31.7, MCHC 32.2, RDW Std Deviation 39.6, RDW Coeff of Alejandro 11.1 L, Plt Count 177, MPV 8.8, Immature Gran % (Auto) 1.100 H, Neut % (Auto) 70.8 H, Lymph % (Auto) 15.0 L, Becker % (Auto) 13.1 H, Eos % (Auto) 0.0, Baso % (Auto) 0.0, Absolute Neuts (auto) 5.2, Absolute Lymphs (auto) 1.10, Nucleated RBC % 0, Differential Comment SCANNED Current Medications Acetaminophen (Tylenol) 650 mg PO Q6H PRN PRN PRN Reason: Pain Score 1-3 /Temp>100.7 Last Admin: 05/08/20 03:20 Dose: 650 mg Documented by: Al Hydroxide/Mg Hydroxide (Mylanta Ii) 30 ml PO Q6H PRN PRN PRN Reason: Gastric Burning Albuterol Sulfate (Ventolin Aerosols) 2.5 mg INHALATION Q2H PRN PRN PRN Reason: Dyspnea, wheezing Dicyclomine HCl (Bentyl) 20 mg PO Q6H PRN PRN PRN Reason: abdominal discomfort Famotidine (Pepcid) 20 mg PO BID [facility] Last Admin: 05/08/20 08:10 Dose: 20 mg Documented by: Folic Acid (Folic Acid) 1 mg PO DAILY@0800 [facility] Stop: 05/09/20 08:01 Last Admin: 05/08/20 08:09 Dose: 1 mg Documented by: Gabapentin (Neurontin) 300 mg PO Q8H PRN PRN PRN Reason: moderate to severe anxiety Hydralazine HCl (Apresoline Iv) 10 mg IV Q4H PRN PRN PRN Reason: SBP > 160 Hydroxyzine Pamoate (Vistaril Pamoate Capsule) 50 mg PO Q4H PRN PRN PRN Reason: mild anxiety Sodium Chloride () 1,000 mls @ 30 mls/hr IV .[id number] [facility] Last Infusion: 05/08/20 07:40 Dose: 30 mls/hr Documented by: Piperacillin Sod/Tazobactam (Sod 3.375 gm/ Sodium Chloride) 50 mls @ 12.5 mls/hr IV Q8 [facility] Last Admin: 05/08/20 05:11 Dose: 12.5 mls/hr Documented by: Sodium Chloride () 250 mls @ 15 mls/hr IV .[id number] PRN PRN Reason: Saline Flush Last Infusion: 05/08/20 05:12 Dose: 0 mls/hr Documented by: Sodium Chloride () 250 mls @ 15 mls/hr IV .[id number] PRN PRN Reason: Additional IVPB Infusion Loperamide HCl (Imodium) 2 mg PO Q4H PRN PRN PRN Reason: LOOSE STOOLS Lorazepam (Ativan) 2 mg PO Q2H PRN PRN; Protocol PRN Reason: CIWA score > 8 but <15 Lorazepam (Ativan) 2 mg PO UD PRN; Protocol PRN Reason: CIWA score >/=15. Lorazepam (Ativan) 2 mg IV Q2H PRN PRN; Protocol PRN Reason: CIWA score > 8 but <15 Lorazepam (Ativan) 2 mg IV UD PRN; Protocol PRN Reason: CIWA score >/=15. Morphine Sulfate () 2 - 4 mg IV Q3H PRN PRN PRN Reason: Pain Score 6-10/10 Morphine Sulfate () 1 - 2 mg IV Q4H PRN PRN PRN Reason: Pain Score 4-5/10 Multivitamins/Minerals (Multivitamin With Minerals (Bkc)) [facility] Last Admin: 05/08/20 08:09 Dose: 1 tablet Documented by: Nicotine (Nicoderm Cq (Pbkc)) 21 mg TRANSDERM. DAILY [facility] Last Admin: 05/08/20 08:14 Dose: 21 mg Documented by: Nicotine Polacrilex (Rugby Nicotine (Bkc)) 2 mg PO Q2H PRN PRN PRN Reason: nicotine withdrawal Ondansetron HCl (Zofran) 4 mg IV Q8H PRN PRN PRN Reason: Nausea Oxycodone HCl (Oxyir) 5 mg PO Q4H PRN PRN PRN Reason: Pain Score 4-5/10 Last Admin: 05/08/20 08:08 Dose: 5 mg Documented by: Phenobarbital (Phenobarbital) 64.8 mg PO Q4H [facility]; Taper Stop: 05/11/20 07:44 Last Admin: 05/08/20 08:08 Dose: 64.8 mg Documented by: Prochlorperazine Edisylate (Compazine Iv) 10 mg IV Q6H PRN PRN PRN Reason: Nausea/Vomiting Sodium Chloride () 10 - 40 ml IV UD PRN PRN Reason: SALINE FLUSH Thiamine HCl (Vitamin B1) 100 mg PO BIDCM [facility] Stop: 05/09/20 17:01 Last Admin: 05/08/20 08:09 Dose: 100 mg Documented by: Trazodone HCl (Desyrel) 100 mg PO QHS PRN PRN PRN Reason: INSOMNIA Assessment/Plan Patient seen by VICTOR M Brown under my supervision. Patient seen and examined. He had surgery yesterday findings of which were chronically ruptured appendicitis with appendiceal abscess and umbilical hernia he also had debridement of appendiceal abscess cavity. He has no complaints today and states he has no pain whatsoever. He is passing a lot of gas. He denies any nausea vomiting or diarrhea. Review of symptoms otherwise negative. O/E: Vital Signs Temp Pulse Resp BP Pulse Ox 98.5 F 80 16 122/84 H 97 05/08/20 08:30 05/08/20 08:30 05/08/20 08:30 05/08/20 08:30 05/08/20 08:30 General: Alert, Oriented x3, Cooperative HEENT: Atraumatic, PERRLA, EOMI, Normocephalic Oral: Dry Mucosa Neck: Supple, No JVD, Negative Carotid Bruits Lungs: Clear to auscultation, Normal air movement Cardiovascular: Regular rate, No murmurs Abdomen: Bowel Sounds Present, Soft, Non Tender, clean dressing over surgical sites Extremities: No clubbing, No cyanosis, No edema, Capillary Refill Less than 3 Seconds Skin: No rashes, No breakdown Musculoskeletal: No Tenderness to Palpation of Joints or Extremities Neurological: Cranial nerves II-XII grossly intact, Neuro grossly intact Psych/Mental Status: Normal Affect, Appropriate Plan is continue IV Zosyn. Blood cultures are still pending. Continue alcohol withdrawal protocol with phenobarbital though he has no symptoms of withdrawal at time of review. General surgery on board. Rest as per Mildred William ZINC PLATER-C's note which I have reviewed and endorsed. Inpatient E&M: [id number] Subs Hosp L2
--- NOTE | 2020-05-08 11:32 | CASEMGMT ---
Addendum entered by Alan Spangler 05/08/20 12:23: Pt/ provided w/[employer] abuse resources/programs. They voiced appreciation. Addendum entered by Alan Spangler 05/08/20 11:42: Pt states he does not smoke, but he does chew tobacco and drinks approx 7-12 beers/day. Pt denies wanting to stop drinking at this time but is agreeable to accepting resources to have for in the future. Original Note: RN CM NAVAL ARCHITECT CM to room to meet with patient for initial transition planning/care coordination assessment. RN LEIGH introduced self and role at [facility]. Pt voices understanding and consents to assessment at this time. Pt resting in bed in no distress at this time. at bedside. Pt is A/O at this time and answers all questions appropriately. Care providers, pharmacy, and demographics verified/updated at this time. PCP: No PCP. Provided w/list of PCP's from [employer] website. Specialists: None Preferred [facility]acy[facility] [place] Insurance: [employer] Prescription Benefit: Yes Living Will/HPOA: [facility] does not have LW or HCPOA . Interested in more information but [facility] does not want to talk with SW at this time to complete paperwork. Provided information on advanced directives and given Social Service rac card with number to call if chooses in the future to utilize [facility] social work for advanced directive completion. Educated patient that, if patient so chooses, can come back to [facility] and meet with a SW as an outpatient to complete health care advanced directives. Patient expresses understanding. LNOK: . 3 adult children Living Arrangements: Lives w/his and youngest daughter lives with them. Lives in one-story home. Independent Transportation: Pt states drives self and states no transportation concerns at this time. drives DME: Denies using any DME and denies needs. HHC/SNF: No history of either and no needs identified. Pt wishes to return home and states has no concerns with going home at time of discharge. CM to follow for any discharge planning/needs. Pt/ voice no concerns/needs at this time. Advised pt/ to ask for CM if any questions/concerns/needs arise. Voices understanding. PLAN: Home w/spousal support and discharge plans in place. Justin BABB RN, CM
[2020-05-08 13:37] VITALS: BP 123/72; PULSE 84; RESP 16; TEMP 37.2; O2SAT 96
[2020-05-08 20:02] VITALS: BP 141/85; PULSE 86; RESP 18; TEMP 37.3; O2SAT 97
[2020-05-09 02:53] VITALS: BP 118/79; PULSE 74; RESP 16; TEMP 36.9; O2SAT 97
[2020-05-09] MEDS: Dicyclomine 10 MG Capsule 20 MG PO (02:56)
[2020-05-09] MEDS: 0.9% Normal Saline 1,000 ML 30 ML IV (02:56)
[2020-05-09] MEDS: Phenobarbital 32.4 MG Tablet 64.8 MG PO (02:56)
[2020-05-09 08:41] VITALS: BP 127/85; PULSE 81; RESP 18; TEMP 37.2; O2SAT 96
--- NOTE | 2020-05-09 08:57 | NURSING ---
spoke with Manuel Pharmacist regarding Phenobarital and pt wanting to resume alcohol. manuel states should be okay to resume ETOH in 4-6 hours after last dose of phenobarbitol, just be aware of any increased sedation- pt informed of such
--- NOTE | 2020-05-09 08:58 | PN.SURG_ITS ---
Patient Problems: Active and Suspected Problems Abdominal pain (Acute) Umbilical hernia (Acute) Alcohol dependency (Acute) Tobacco dependence due to chewing tobacco (Acute) Right inguinal hernia (Acute) Subjective: Patient's having bowel movements and flatus. Objective: Drain removed without difficulty. Dressings are dry - Physical Exam Vitals/I&O's: Vital Signs Temp Pulse Resp BP Pulse Ox 98.9 F 81 18 127/85 H 96 05/09/20 08:41 05/09/20 08:41 05/09/20 08:41 05/09/20 08:41 05/09/20 08:41 Oxygen Flow Rate (L/min) 2 Oxygen Delivery Method Room Air Weight: 220 lb 10.923 oz Body Mass Index (BMI) 32.5 Intake and Output for Last 24 Hours 05/07/20 05/08/20 05/09/20 23:59 23:59 23:59 Intake Total 2207.16 / 2327.16 2039.58 / 2189.58 688.04 / 688.04 Output Total 290 / 600 910 / 910 510 / 510 Balance 1917.16 / 1727.16 1129.58 / 1279.58 178.04 / 178.04 Current Medications Acetaminophen (Tylenol) 650 mg PO Q6H PRN PRN PRN Reason: Pain Score 1-3 /Temp>100.7 Last Admin: 05/08/20 23:00 Dose: 650 mg Documented by: Al Hydroxide/Mg Hydroxide (Mylanta Ii) 30 ml PO Q6H PRN PRN PRN Reason: Gastric Burning Albuterol Sulfate (Ventolin Aerosols) 2.5 mg INHALATION Q2H PRN PRN PRN Reason: Dyspnea, wheezing Dicyclomine HCl (Bentyl) 20 mg PO Q6H PRN PRN PRN Reason: abdominal discomfort Last Admin: 05/09/20 02:56 Dose: 20 mg Documented by: Famotidine (Pepcid) 20 mg PO BID [facility] Last Admin: 05/08/20 23:07 Dose: 20 mg Documented by: Gabapentin (Neurontin) 300 mg PO Q8H PRN PRN PRN Reason: moderate to severe anxiety Hydralazine HCl (Apresoline Iv) 10 mg IV Q4H PRN PRN PRN Reason: SBP > 160 Hydroxyzine Pamoate (Vistaril Pamoate Capsule) 50 mg PO Q4H PRN PRN PRN Reason: mild anxiety Sodium Chloride () 1,000 mls @ 30 mls/hr IV .[id number] [facility] Last Admin: 05/09/20 08:56 Dose: Not Given Documented by: Piperacillin Sod/Tazobactam (Sod 3.375 gm/ Sodium Chloride) 50 mls @ 12.5 mls/hr IV Q8 [facility] Last Infusion: 05/09/20 08:56 Dose: Infused Documented by: Sodium Chloride () 250 mls @ 15 mls/hr IV .[id number] PRN PRN Reason: Saline Flush Last Infusion: 05/09/20 05:15 Dose: 0 mls/hr Documented by: Sodium Chloride () 250 mls @ 15 mls/hr IV .[id number] PRN PRN Reason: Additional IVPB Infusion Loperamide HCl (Imodium) 2 mg PO Q4H PRN PRN PRN Reason: LOOSE STOOLS Lorazepam (Ativan) 2 mg PO Q2H PRN PRN; Protocol PRN Reason: CIWA score > 8 but <15 Lorazepam (Ativan) 2 mg PO UD PRN; Protocol PRN Reason: CIWA score >/=15. Lorazepam (Ativan) 2 mg IV Q2H PRN PRN; Protocol PRN Reason: CIWA score > 8 but <15 Lorazepam (Ativan) 2 mg IV UD PRN; Protocol PRN Reason: CIWA score >/=15. Multivitamins/Minerals (Multivitamin With Minerals (Bkc)) [facility] Last Admin: 05/08/20 08:09 Dose: 1 tablet Documented by: Nicotine (Nicoderm Cq (Pbkc)) 21 mg TRANSDERM. DAILY [facility] Last Admin: 05/08/20 08:14 Dose: 21 mg Documented by: Nicotine Polacrilex (Rugby Nicotine (Bkc)) 2 mg PO Q2H PRN PRN PRN Reason: nicotine withdrawal Ondansetron HCl (Zofran) 4 mg IV Q8H PRN PRN PRN Reason: Nausea Oxycodone HCl (Oxyir) 5 mg PO Q4H PRN PRN PRN Reason: Pain Score 4-5/10 Last Admin: 05/08/20 23:01 Dose: 5 mg Documented by: Phenobarbital (Phenobarbital) 64.8 mg PO Q6H [facility]; Taper Stop: 05/11/20 07:44 Last Admin: 05/09/20 02:56 Dose: 64.8 mg Documented by: Prochlorperazine Edisylate (Compazine Iv) 10 mg IV Q6H PRN PRN PRN Reason: Nausea/Vomiting Sodium Chloride () 10 - 40 ml IV UD PRN PRN Reason: SALINE FLUSH Thiamine HCl (Vitamin B1) 100 mg PO BIDCM [facility] Stop: 05/09/20 17:01 Last Admin: 05/08/20 16:52 Dose: 100 mg Documented by: Trazodone HCl (Desyrel) 100 mg PO QHS PRN PRN PRN Reason: INSOMNIA Medical Necessity - Tobacco Use Smoking Status: Never smoker Tobacco Use: Chew Assessment/Plan All Active Problems Abdominal pain (Acute) Umbilical hernia (Acute) Alcohol dependency (Acute) Tobacco dependence due to chewing tobacco (Acute) Right inguinal hernia (Acute) Discharge the patient today.
--- NOTE | 2020-05-09 11:26 | PCM.PROGNOTE ---
<StewartMildred [employer] - Last Filed: 05/09/20 11:29> Patient Problems: Active and Suspected Problems Right inguinal hernia (Acute) Subjective: Patient seen and examined. States he is ready to go home. YANIRA drain removed this morning per surgery. Patient denies significant pain. Denies fever, chills. Denies nausea, vomiting. Plan for discharge later today per surgery. - Physical Exam Vitals/I&O's: Vital Signs Temp Pulse Resp BP Pulse Ox 98.9 F 81 18 127/85 H 96 05/09/20 08:41 05/09/20 08:41 05/09/20 08:41 05/09/20 08:41 05/09/20 08:41 Oxygen Flow Rate (L/min) 2 Oxygen Delivery Method Room Air Weight: 220 lb 10.923 oz Body Mass Index (BMI) 32.5 Intake and Output for Last 24 Hours 05/07/20 05/08/20 05/09/20 23:59 23:59 23:59 Intake Total 2207.16 / 2327.16 2039.58 / 2189.58 688.04 / 688.04 Output Total 290 / 600 910 / 910 510 / 510 Balance 1917.16 / 1727.16 1129.58 / 1279.58 178.04 / 178.04 General: Alert, Oriented x3, Cooperative HEENT: Atraumatic, PERRLA, EOMI, Normocephalic Neck: Supple, No JVD, Negative Carotid Bruits Lungs: Clear to auscultation, Normal air movement Cardiovascular: Regular rate, No murmurs Abdomen: Bowel Sounds Present, Soft, Tender - At lap sites, - - Lap sites intact Extremities: No clubbing, No cyanosis, No edema, Capillary Refill Less than 3 Seconds Skin: No rashes, No breakdown Musculoskeletal: No Tenderness to Palpation of Joints or Extremities Neurological: Cranial nerves II-XII grossly intact, Neuro grossly intact Psych/Mental Status: Normal Affect, Appropriate Medical Necessity - Tobacco Use Smoking Status: Never smoker Tobacco Use: Chew Assessment/Plan All Active Problems Abdominal pain (Acute) Umbilical hernia (Acute) Alcohol dependency (Acute) Tobacco dependence due to chewing tobacco (Acute) Right inguinal hernia (Acute) 1. Chronically ruptured appendicitis with appendiceal abscess-General surgery following. Patient underwent laparoscopy with conversion to hand-assisted laparoscopic appendectomy and debridement of appendiceal abscess cavity. Umbilical herniography. Patient received IV Zosyn empirically. PRN pain regimen. Management per general surgery. Plan for discharge home per surgery with further outpatient follow-up. 2. Elevated blood pressure without history of hypertension-suspect elevated secondary to pain related to #1. Blood pressure now stable. Continue to monitor. 3. Alcohol dependence with history of withdrawal-not interested in sobriety. Phenobarb taper for seizure/withdrawal prophylaxis. CIWA. 4. Chewing tobacco use- encouraged cessation. 5. BPH- continue flomax. DVT prophylaxis- SCDs Discharge planning: Medically stable for discharge pending surgical clearance. This patient was seen by VICTOR M Brown under the supervision of Dr. Wynne. <Annette Wynne - Last Filed: 05/09/20 12:19> - Physical Exam Vitals/I&O's: Vital Signs Temp Pulse Resp BP Pulse Ox 98.9 F 81 18 127/85 H 96 05/09/20 08:41 05/09/20 08:41 05/09/20 08:41 05/09/20 08:41 05/09/20 08:41 Oxygen Flow Rate (L/min) 2 Oxygen Delivery Method Room Air Weight: 220 lb 10.923 oz Body Mass Index (BMI) 32.5 Intake and Output for Last 24 Hours 05/07/20 05/08/20 05/09/20 23:59 23:59 23:59 Intake Total 2207.16 / 2327.16 2039.58 / 2189.58 688.04 / 688.04 Output Total 290 / 600 910 / 910 510 / 510 Balance 1917.16 / 1727.16 1129.58 / 1279.58 178.04 / 178.04 Assessment/Plan Patient seen by VICTOR M Brown under my supervision. Patient seen and examined. He says pain is well controlled. Review of otherwise negative. Labs and vitals reviewed. Home meds reviewed and reconciled. Today is postop day 2 for follow-up for scopic appendectomy and debridement of appendiceal abscess cavity. O/E: Vital Signs Temp Pulse Resp BP Pulse Ox 98.9 F 81 18 127/85 H 96 05/09/20 08:41 05/09/20 08:41 05/09/20 08:41 05/09/20 08:41 05/09/20 08:41 General: Alert, Oriented x3, Cooperative HEENT: Atraumatic, PERRLA, EOMI, Normocephalic Oral: Dry Mucosa Neck: Supple, No JVD, Negative Carotid Bruits Lungs: Clear to auscultation, Normal air movement Cardiovascular: Regular rate, No murmurs Abdomen: Bowel Sounds Present, Soft, Non Tender, clean dressing over surgical sites; surgical drain in place Extremities: No clubbing, No cyanosis, No edema, Capillary Refill Less than 3 Seconds Skin: No rashes, No breakdown Musculoskeletal: No Tenderness to Palpation of Joints or Extremities Neurological: Cranial nerves II-XII grossly intact, Neuro grossly intact Psych/Mental Status: Normal Affect, Appropriate Patient currently on IV Zosyn. Per discussion with Dr. Diallo, plan is for removal of drain today and for discharge home today. Patient is medically stable for discharge from hospital standpoint. Per surgery, he has been discharged him on amoxicillin clavulanic acid 875 125 mg twice daily for 5 days. He is follow-up with his primary care doctor and general surgery. Rest as per Mildred William [employer]-C's note which I have reviewed and endorsed. Inpatient E&M: 41364 Subs Hosp L2
== END 2020-05-09 10:12 | disposition home or self-care (01) | DRG 339 ==
LOC: ED 18:41 → MS3 22:04
PROVIDERS: Anesthesiology; Family Medicine; Admitting Provider Surgery; Emergency Provider Emergency Medicine; Visit Provider Student in an Organized Health Care Education/Training Program
PROC: 0WQF0ZZ Repair Abdominal Wall, Open Approach (ICD-10-PCS; principal; 2020-05-07 09:40)
DX: K35.33 Acute appendicitis with perforation, localized peritonitis, and gangrene, with abscess (principal); R18.8 Other ascites; K42.9 Umbilical hernia without obstruction or gangrene; K40.90 Unilateral inguinal hernia, without obstruction or gangrene, not specified as recurrent; F17.220 Nicotine dependence, chewing tobacco, uncomplicated; N40.0 Benign prostatic hyperplasia without lower urinary tract symptoms; M10.9 Gout, unspecified; F10.20 Alcohol dependence, uncomplicated; R03.0 Elevated blood-pressure reading, without diagnosis of hypertension; Y90.9 Presence of alcohol in blood, level not specified
CPT/HCPCS: 36415; 74177; 80053; 80307; 80320; 81001; 82248; 83690; 83735; 84100; 85025; 85610; 85652; 85730; 86140; 87040; 88108; 88302; 88304; 88305; 88313; 93005; 99251; 99284; 99406; J7030; J7050; Q9967; A4216; G0463; G0480; J2405

== ENCOUNTER → 2020-05-18 13:20 | Outpatient (CLI) | payer BC, SELFPAY ==
[2020-05-07 08:16] VITALS: BMI 32.5
== END ==
PROVIDERS: Referring Provider Surgery; Visit Provider Surgery
DX: R19.7 Diarrhea, unspecified (principal)
CPT/HCPCS: 87493